=== PATIENT | male | born 1935 | race Caucasian/White ===

== ENCOUNTER 2017-09-09 10:42 | Emergency (ER) | payer MEDICARE ==
[~2017-09-09] VITALS: Ht 170.2 cm; Wt 70.3 kg
[2017-09-09 10:54] VITALS: BP 149/56
--- NOTE | 2017-09-09 11:12 | Emergency Room Report ---
History of Present Illness General Chief Complaint: Abdominal Pain Source: Patient, EMS Present Illness HPI 81-year-old male, history of atrial fibrillation with a pacemaker, not on any blood thinners, chronic alcohol abuse p/w epigastric abdominal pain for one day. Patient states pain started after vomiting, non radiating, burning in nature, intermittent. No relieving or exacerbating factors. Pt reports n/v, >5 episodes of nbnb vomiting, denies diarrhea Denies fever, chills. No hx of abdominal surgeries. No hx of endoscopies/colonoscopies. Denies any bloody vomiting. No black stool Allergies: Coded Allergies: No Known Allergies (Unverified , 09/09/17) Patient History Past Medical History: see triage record Past Surgical History: none Pertinent Family History: none Reviewed Nursing Documentation: PMH: Agreed, PSxH: Agreed Nursing Documentation-PMH Hx Hypertension: Yes Hx Cerebrovascular Accident: Yes Review of Systems All Other Systems: negative except mentioned in HPI Physical Exam Vital Signs Date Time Temp Pulse Resp B/P (MAP) Pulse Ox O2 Delivery O2 Flow Rate FiO2 09/09/17 10:38 68 18 150/58 98 Room Air 09/09/17 10:54 97.3 Sp02 EP Interpretation: reviewed, normal General Appearance: alert, GCS 15, non-toxic, moderate distress Head: normocephalic, atraumatic Eyes: bilateral eye normal inspection, bilateral eye PERRL, bilateral eye EOMI ENT: normal ENT inspection, normal pharynx, normal voice, moist mucus membranes Neck: normal inspection, full range of motion, supple Respiratory: normal inspection, lungs clear, normal breath sounds, no respiratory distress, no retraction, no wheezing, speaking full sentences, chest symmetrical Cardiovascular #1: normal inspection, regular rate, rhythm, normal capillary refill Cardiovascular #2: 2+ radial (R), 2+ radial (L) Gastrointestinal: normal inspection, non tender, soft, non-distended, no guarding Genitourinary: no CVA tenderness Musculoskeletal: normal inspection, back normal, normal range of motion, non- tender Neurologic: normal inspection, alert, oriented x3, responsive, motor strength/ tone normal, sensory intact, normal gait, speech normal Psychiatric: normal inspection, judgement/insight normal, memory normal Skin: normal inspection, normal color, no rash, warm/dry, well hydrated, normal turgor Medical Decision Making Diagnostic Impression: Primary Impression: Epigastric pain Additional Impression: Alcohol use ER Course 81-year-old male with epigastric abdominal pain Differential Diagnosis: Alcohol Gastritis, gastroenteritis, cholecystitis, appendicitis, diverticulitis , SBO, mesenteric ischemia, cardiac, UTI/pyelo At this time abdomen is soft nontender, not likely to have acute intra- abdominal surgical pathology, will hold CT for now. Plan: Basic labs, ua, ekg Pepcid, maalox, pain control, IVF ER course: Patient has remained stable during ED stay. Pain improved. Repeat abdominal exam is nontender. Tolerating PO I spoke to patient and patient's roommate possibility of admitting patient, patient states that he feels better and would like to go home. He will be with a roommate at his home. I will discharge him on Pepcid and Zofran, instructed to refrain from alcohol use. I told patient that he must come back to the emergency room in immediately if he is is having severe worsening pain, chest pain shortness of breath, vomiting blood, or having black or bloody stools. Disposition: Patient is to be discharged to home. Prescriptions given are pepcid zofran Patient is instructed to follow up with their primary care doctor within 5 days. Patient is instructed to refrain from all alcohol use Strict return precautions discussed with patient such as fever, chills, worsening/severe abdominal pain, nausea, vomiting, black or bloody stools, which may indicate severe illness. Patient verbalizes understanding and agrees with plan. Please note that this Emergency Department Report was dictated using [email or web address] technology software, occasionally this can lead to erroneous entry secondary to interpretation by the dictation equipment EKG Diagnostic Results EP Interpretation: Yes Rate: normal Rhythm: Atrial paced ST Segments: No acute changes ASA given to patient: No Rhythm Strip EP Interpretation: Yes Rate: 60 Rhythm: Atrial paced Chest X-ray CXR: Ordered: Yes 1 view Indication: Chest pain EP interpretation: Yes Interpretation: No consolidation, no effusion, no PTX, no acute cardiopulmonary disease, pacemaker noted left chest Impression: No acute disease Electronically signed by Susi Fountain MD Laboratory Tests Test 09/09/17 10:50 09/09/17 11:00 09/09/17 12:00 Sodium Level 142 MMOL/L (136-145) Potassium Level 3.8 MMOL/L (3.5-5.1) Chloride Level 101 MMOL/L (98-107) Carbon Dioxide Level 20 MMOL/L (21-32) L Anion Gap 21 mmol/L (5-15) H Blood Urea Nitrogen 25 mg/dL (7-18) H Creatinine 1.2 MG/DL (0.55-1.30) Estimate Glomerular Filtration Rate mL/min (>60) Glucose Level 73 MG/DL (74-106) L Calcium Level 9.8 MG/DL (8.5-10.1) Total Bilirubin 1.0 MG/DL (0.2-1.0) Aspartate Amino Transferase (AST) 30 U/L (15-37) Alanine Aminotransferase (ALT) 18 U/L (12-78) Alkaline Phosphatase 66 U/L (46-116) Troponin I 0.000 ng/mL (0.000-0.056) Total Protein 7.9 G/DL (6.4-8.2) Albumin 3.7 G/DL (3.4-5.0) Globulin 4.2 g/dL Albumin/Globulin Ratio 0.9 (1.0-2.7) L Lipase 151 U/L (73-393) Serum Alcohol 72 mg/dL White Blood Count 14.2 K/UL (4.8-10.8) H Red Blood Count 4.73 M/UL (4.70-6.10) Hemoglobin 16.3 G/DL (14.2-18.0) Hematocrit 48.9 % (42.0-52.0) Mean Corpuscular Volume 103 FL (80-99) H Mean Corpuscular Hemoglobin 34.4 PG (27.0-31.0) H Mean Corpuscular Hemoglobin Concent 33.3 G/DL (32.0-36.0) Red Cell Distribution Width 12.7 % (11.6-14.8) Platelet Count 276 K/UL (150-450) Mean Platelet Volume 7.1 FL (6.5-10.1) Neutrophils (%) (Auto) 77.2 % (45.0-75.0) H Lymphocytes (%) (Auto) 16.1 % (20.0-45.0) L Monocytes (%) (Auto) 6.0 % (1.0-10.0) Eosinophils (%) (Auto) 0.5 % (0.0-3.0) Basophils (%) (Auto) 0.3 % (0.0-2.0) Urine Color Yellow Urine Appearance Slightly cloudy Urine pH 5 (4.5-8.0) Urine Specific [place] 1.020 (1.005-1.035) Urine Protein 2+ (NEGATIVE) H Urine Glucose (UA) Negative (NEGATIVE) Urine Ketones 2+ (NEGATIVE) H Urine Occult Blood Negative (NEGATIVE) Urine Nitrite Negative (NEGATIVE) Urine Bilirubin Negative (NEGATIVE) Urine Urobilinogen 4 MG/DL (0.0-1.0) H Urine Leukocyte Esterase 1+ (NEGATIVE) H Urine RBC 0-2 /HPF (0 - 0) H Urine WBC 2-4 /HPF (0 - 0) Urine Squamous Epithelial Cells Few /LPF (NONE/OCC) Urine Bacteria Few /HPF (NONE) Urine Mucus Few /LPF (NONE/OCC) H Urine Opiates Screen Negative (NEGATIVE) Urine Barbiturates Screen Negative (NEGATIVE) Phencyclidine (PCP) Screen Negative (NEGATIVE) Urine Amphetamines Screen Negative (NEGATIVE) Urine Benzodiazepines Screen Negative (NEGATIVE) Urine Cocaine Screen Negative (NEGATIVE) Urine Marijuana (THC) Screen Negative (NEGATIVE) Last Vital Signs Date Time Temp Pulse Resp B/P (MAP) Pulse Ox O2 Delivery O2 Flow Rate FiO2 09/09/17 10:54 97.3 60 22 149/56 98 Room Air Disposition: HOME, SELF-CARE Condition: Improved Scripts Ondansetron Odt* (ZOFRAN ODT*) 4 Mg Tab.rapdis 4 MG ORAL Q6H Y for Nausea & Vomiting, #15 TAB 0 Refills Prov: Susi Fountain M.D. 09/09/17 Famotidine (PEPCID) 40 Mg Tablet 40 MG PO DAILY, #7 TAB 0 Refills Prov: Susi Fountain M.D. 09/09/17 Patient Instructions: Abdominal Pain, Adult Susi Fountain M.D. Sep 09, 2017 11:12
[2017-09-09 11:26] LABS: BASOPHILS % (AUTO) 0.3 % (0.0-2.0); EOSINOPHILS % (AUTO) 0.5 % (0.0-3.0); HEMATOCRIT 48.9 % (42.0-52.0); HEMOGLOBIN 16.3 G/DL (14.2-18.0); LYMPHOCYTES % (AUTO) 16.1 % (20.0-45.0); MEAN CORPUSCULAR VOLUME 103 FL (80-99); NEUTROPHILS % (AUTO) 77.2 % (45.0-75.0); PLATELET COUNT 276 K/UL (150-450); RED BLOOD COUNT 4.73 M/UL (4.70-6.10); RED CELL DISTRIBUTION WIDTH 12.7 % (11.6-14.8); WHITE BLOOD COUNT 14.2 K/UL (4.8-10.8)
[2017-09-09 11:35] LABS: ANION GAP 21 mmol/L (5-15); BLOOD UREA NITROGEN 25 mg/dL (7-18); CALCIUM 9.8 MG/DL (8.5-10.1); CARBON DIOXIDE 20 MMOL/L (21-32); CHLORIDE 101 MMOL/L (98-107); CREATININE 1.2 MG/DL (0.55-1.30); POTASSIUM 3.8 MMOL/L (3.5-5.1); SODIUM 142 MMOL/L (136-145)
[2017-09-09 11:40] LABS: ALANINE AMINOTRANSFERASE 18 U/L (12-78); ALBUMIN 3.7 G/DL (3.4-5.0); ALBUMIN/GLOBULIN RATIO 0.9 (1.0-2.7); ALKALINE PHOSPHATASE 66 U/L (46-116); ASPARTATE AMINO TRANSFERASE 30 U/L (15-37)
[2017-09-09] MEDS ORDERED: D5 1/2NS 1,000 ML IV ONE (11:45)
--- NOTE | 2017-09-09 12:00 | Diagnostic Imaging Report ---
Indication: Dyspnea Comparison: None A single view chest radiograph was obtained. Findings: There is evidence of a left pleural effusion with hazy left-sided opacity. The heart is borderline enlarged. Pacemaker is noted. IMPRESSION: Left pleural effusion
[2017-09-09 12:08] LABS: APPEARANCE,URINE SLIGHTLY CLOUDY; BILIRUBIN, URINE NEGATIVE (NEGATIVE); GLUCOSE, URINE (UA) NEGATIVE (NEGATIVE); KETONES,URINE 2+ (NEGATIVE); LEUKOCYTE ESTERASE ,URINE 1+ (NEGATIVE); NITRITE,URINE NEGATIVE (NEGATIVE); PH,URINE 5 (4.5-8.0); PROTEIN,URINE 2+ (NEGATIVE); UROBILINOGEN,URINE 4 MG/DL (0.0-1.0)
[2017-09-09 12:12] LABS: COLOR,URINE YELLOW
[2017-09-09] MEDS ORDERED: Mylanta II UD 30ml ORAL ONE (13:00)
[2017-09-09] MEDS ORDERED: Lidocaine 2% Visc 15ml soln ORAL ONE (13:00)
[2017-09-09] MEDS ORDERED: Dicyclomine HCl 10mg/5ml oral soln ORAL ONE (13:00)
[2017-09-09] MEDS ORDERED: ZOFRAN ODT4 MG ORAL (13:41)
[2017-09-09] MEDS ORDERED: PEPCID40 MG PO (13:41)
[2017-09-09 14:06] VITALS: BP 167/54
--- NOTE | 2017-09-10 15:53 | Cardiology Report ---
APPROVED REPORT EKG Measurement Heart [id number] 254P [id number] Atrial Pacemaker Incomplete right bundle branch block Nonspecific ST abnormality Prolonged QT Abnormal ECG
== END 2017-09-09 14:10 | disposition home or self-care (01) ==
LOC: EDBD 10:42 → EMR 11:18
DX: R10.13 Epigastric pain (principal); F10.10 Alcohol abuse, uncomplicated; I10 Essential (primary) hypertension; Z86.73 Personal history of transient ischemic attack (TIA), and cerebral infarction without residual deficits; I48.91 Unspecified atrial fibrillation; Z95.0 Presence of cardiac pacemaker
CPT/HCPCS: 36415; 71045; 80053; 80307; 81003; 83690; 84484; 85025; 93005; 96361; 96374; 96375; 99284; G0480; J2405; S0028; 80329

== ENCOUNTER 2018-01-04 03:19 | Inpatient (IN) | payer MEDICARE, BC ==
[2018-01-04] VITALS (8 sets, daily range): BP systolic 100–150; BP diastolic 50–61
[~2018-01-04] VITALS: Ht 165.1 cm; Wt 65.8 kg
[~2018-01-04 03:19] MED LIST: PEPCID40 MG PO; ZOFRAN ODT4 MG ORAL
[2018-01-04] MEDS ORDERED: Lidocaine 2% Visc 15ml soln ORAL ONE (03:30)
[2018-01-04] MEDS ORDERED: Isovue-370 150ml vial INJ PRN (04:15)
[2018-01-04 04:30] LABS: BASOPHILS % (AUTO) 0.5 % (0.0-2.0); EOSINOPHILS % (AUTO) 0.9 % (0.0-3.0); HEMATOCRIT 47.8 % (42.0-52.0); HEMOGLOBIN 15.9 G/DL (14.2-18.0); LYMPHOCYTES % (AUTO) 14.3 % (20.0-45.0); MEAN CORPUSCULAR VOLUME 100 FL (80-99); MONOCYTES % (AUTO) 10.3 % (1.0-10.0); PLATELET COUNT 167 K/UL (150-450); RED BLOOD COUNT 4.79 M/UL (4.70-6.10); WHITE BLOOD COUNT 7.2 K/UL (4.8-10.8)
[2018-01-04 04:41] LABS: ANION GAP 11 mmol/L (5-15); BLOOD UREA NITROGEN 20 mg/dL (7-18); CALCIUM 9.3 MG/DL (8.5-10.1); CARBON DIOXIDE 26 MMOL/L (21-32); CHLORIDE 99 MMOL/L (98-107); CREATININE 1.4 MG/DL (0.55-1.30); POTASSIUM 3.3 MMOL/L (3.5-5.1); SODIUM 136 MMOL/L (136-145)
[2018-01-04 04:54] LABS: ALANINE AMINOTRANSFERASE 11 U/L (12-78); ALBUMIN 3.2 G/DL (3.4-5.0); ALBUMIN/GLOBULIN RATIO 0.8 (1.0-2.7); ALKALINE PHOSPHATASE 69 U/L (46-116); ASPARTATE AMINO TRANSFERASE 38 U/L (15-37); CKMB 1.2 NG/ML (0.0-3.6); CREATINE KINASE 38 U/L (26-308)
--- NOTE | 2018-01-04 05:02 | Emergency Room Report ---
History of Present Illness General Chief Complaint: General Complaint Source: Patient Present Illness HPI Is an 82-year-old male with a history of hypertension and has a pacemaker. He also has a history of prostate cancer status post surgery. He presents with chief complaint of choking and coughing. He said this started after he took Colace pill. He said he thought it was stuck to his throat and he was coughing it up. He said he coughed up some liquid that was burning in nature. Now he continue coughing. Nothing made it better. Laying flat made it worse. When his roommate came in, he said that he's been coughing for last for 5 days. Denies any chest pain. No nausea no vomiting. No diaphoresis. Patient was here in August for epigastric pain. Chest x-ray done showed small left pleural effusion. Allergies: Coded Allergies: CLARITHROMYCIN (Verified Allergy, Unknown, 01/04/18) Patient History Past Medical History: see triage record, old chart reviewed, HTN, CAD Past Surgical History: pacemaker Pertinent Family History: none Social History: Denies: smoking Immunizations: other Reviewed Nursing Documentation: PMH: Agreed; PSxH: Agreed Nursing Documentation-PMH Hx Hypertension: Yes Hx Pacemaker: Yes Hx Cancer: Yes - PROSTATE SURGERY,PROSTATE CA Hx Cerebrovascular Accident: Yes Review of Systems Eye: Denies: eye pain, blurred vision ENT: Denies: ear pain, nose congestion, throat swelling Respiratory: Reports: cough; Denies: shortness of breath Cardiovascular: Denies: chest pain, palpitations Gastrointestinal: Denies: abdominal pain, diarrhea, nausea, vomiting Musculoskeletal: Denies: back pain, joint pain Skin: Denies: rash Neurological: Denies: headache, numbness Endocrine: Denies: increased thirst, increased urine Hematologic/Lymphatic: Denies: easy bruising All Other Systems: negative except mentioned in HPI Physical Exam Vital Signs Date Time Temp Pulse Resp B/P (MAP) Pulse Ox O2 Delivery O2 Flow Rate FiO2 01/04/18 03:14 98.3 60 18 142/60 100 Room Air 98.2 vitals normal Sp02 EP Interpretation: reviewed, normal General Appearance: well appearing, no apparent distress, alert Head: normocephalic, atraumatic Eyes: bilateral eye PERRL, bilateral eye EOMI ENT: hearing grossly normal, normal pharynx Neck: full range of motion, supple, no meningismus Respiratory: chest non-tender, decreased breath sounds - left side Cardiovascular #1: regular rate, rhythm, no murmur Gastrointestinal: normal bowel sounds, non tender, no mass, no organomegaly, no bruit, non-distended Musculoskeletal: back normal, gait/station normal, normal range of motion Psychiatric: mood/affect normal Skin: warm/dry Medical Decision Making Diagnostic Impression: Primary Impression: Pleural effusion on left ER Course Patient presents with a large left pleural effusion. This is a big change from August. No evidence of ACS, PE, dissection. Lasix given. No evidence of any respiratory or distress. His coughing is probably secondary to pleural effusion rather than a foreign body. CT scan pending. CT may she show neoplastic process. I discussed the case with Dr. Gomes who will admit. Lab Results Impression labs with elevated BNP EKG Diagnostic Results Rate: normal Rhythm: other - paced ST Segments: other Rhythm Strip Diag. Results Rhythm Strip Time: 05:01 EP Interpretation: yes Rate: 60 Rhythm: NSR, no PVC's, no ectopy Chest X-Ray Diagnostic Results Chest X-Ray Diagnostic Results : Chest X-Ray Ordered: Yes # of Views/Limited/Complete: 1 View Indication: Shortness of Breath EP Interpretation: Yes Interpretation: no pneumothorax, other - pacemaker. Large left pleural effusion. Cannot rule out underlying infiltrate or mass Impression: Other - large left pleural effusion Electronically Signed by: Ok Larsen MD CT/MRI/US Diagnostic Results CT/MRI/US Diagnostic Results : Imaging Test Ordered: CT chest Impression CT chest will be read by radiologist. Readings pending. Last Vital Signs Date Time Temp Pulse Resp B/P (MAP) Pulse Ox O2 Delivery O2 Flow Rate FiO2 01/04/18 04:05 60 18 114/58 100 Room Air 01/04/18 03:20 98.2 98.2 Status: improved Disposition: ADMITTED INPATIENT Condition: Serious Referrals: NOT CHOSEN SYDNEY/,REFERRING (PCP) OK LARSEN M.D. January 04, 2018 05:02
[2018-01-04] MEDS ORDERED: MULTIVITAMINS1 EAC2 ORAL (05:44)
[2018-01-04] MEDS ORDERED: TYLENOL EXTRA500 MG ORAL (05:44)
[2018-01-04] MEDS ORDERED: CRESTOR10 M1 ORAL (05:44)
[2018-01-04] MEDS ORDERED: FUROSEMIDE20 M1 ORAL (05:44)
[2018-01-04] MEDS ORDERED: VITAMIN B-12100 MCG ORAL (05:44)
[2018-01-04] MEDS ORDERED: VITAMIN D1000 UNI1 ORAL (05:44)
[2018-01-04] MEDS ORDERED: AMBIEN5 MG ORAL (05:44)
[2018-01-04] MEDS ORDERED: PRILOSEC OTC20 MG ORAL (05:44)
[2018-01-04] MEDS ORDERED: AMIODARONE HCL200 MG ORAL (05:44)
[2018-01-04] MEDS ORDERED: METOPROLOL TAR100 M1 ORAL (05:44)
[2018-01-04] MEDS ORDERED: NITROSTAT0.4 M2 SL (05:44)
--- NOTE | 2018-01-04 06:45 | Diagnostic Imaging Report ---
EXAM: CT Chest With Intravenous Contrast CLINICAL HISTORY: SOB TECHNIQUE: Axial computed tomography images of the chest with intravenous contrast during the arterial phase of enhancement. CTDI is 25 mGy and DLP is 900 mGy-cm. One or more of the following dose reduction techniques were used: automated exposure control, adjustment of the mA and/or kV according to patient size, use of iterative reconstruction technique. Coronal and sagittal reformatted images were created and reviewed. COMPARISON: Correlated with the earlier chest radiograph. FINDINGS: Normal caliber thoracic aorta with atherosclerotic disease. Coronary artery calcifications. Pacemaker device. No pericardial effusion. Large left pleural effusion with mild mediastinal shift towards the right. There is central atelectasis of portion of the left lower lobe. No evidence of failure or edema. No definite PE. Peripheral branches in the left lung are suboptimally evaluated. No acute fractures. Small hiatal hernia. No adenopathy. Old granulomatous disease. IMPRESSION: Large left pleural effusion with mild mediastinal shift towards the right. There is central compressive atelectasis of portion of the left lower lobe. Underlying occult postobstructive process cannot be excluded based on this exam. Recommend short-term followup. No definite evidence of PE.
[2018-01-04 07:12] LABS: APPEARANCE,URINE CLEAR; BILIRUBIN, URINE NEGATIVE (NEGATIVE); COLOR,URINE PALE YELLOW; GLUCOSE, URINE (UA) NEGATIVE (NEGATIVE); KETONES,URINE NEGATIVE (NEGATIVE); LEUKOCYTE ESTERASE ,URINE NEGATIVE (NEGATIVE); NITRITE,URINE NEGATIVE (NEGATIVE); PH,URINE 5 (4.5-8.0); PROTEIN,URINE 1+ (NEGATIVE); UROBILINOGEN,URINE 1 MG/DL (0.0-1.0)
[2018-01-04] MEDS ORDERED: Zolpidem 5mg tab ORAL PRN (07:45)
[2018-01-04] MEDS ORDERED: Milk of Magnesia 30ml Ud ORAL PRN (08:45)
[2018-01-04] MEDS: Docusate 250mg cap ORAL SCH (10:35)
[2018-01-04] MEDS: Vitamin D 1000 IU Tab ORAL SCH (10:36)
[2018-01-04] MEDS: Amiodarone 200mg tab ORAL SCH (10:36)
[2018-01-04] MEDS: Heparin 5000 units/ml inj SUBQ SCH ×2 (10:37→21:00)
[2018-01-04] MEDS: Vitamin B-12 100mcg tab ORAL SCH (10:41)
[2018-01-04] MEDS: Acetaminophen 500mg (ES) tab ORAL PRN ×3 (10:42→21:12)
--- NOTE | 2018-01-04 20:45 | History and Physical Report ---
DATE OF ADMISSION: 01/04/2018 CHIEF COMPLAINT: Shortness of breath. HISTORY OF PRESENT ILLNESS: The patient is a pleasant 82-year-old male. He has history of hypertension, congestive heart failure, pacemaker. He presented from home with complaints of choking on a pill. According to the patient, he tried to swallow a laxative yesterday and it got stuck in his throat, slowly dissolved, and he felt an acid taste in his mouth. He presented to the emergency room. By then, he had stated that the pill had gone down. He has had worsening shortness of breath and dyspnea on exertion for the last two months. On evaluation in the emergency room, a CAT scan of the chest showed extensive -sided pleural effusion. In light of the patient's symptomatic pleural effusion, he is now admitted for further evaluation and care. He denies any fevers or chills. He has had no cough. PAST MEDICAL HISTORY: As above. History of prostate cancer. PAST SURGICAL HISTORY: Includes appendectomy, pacemaker, and prostatectomy. CURRENT MEDICATIONS: Reconciled and reviewed. ALLERGIES: Include Biaxin. FAMILY HISTORY: Significant for heart disease. SOCIAL HISTORY: Negative for tobacco. The patient drinks two glasses of wine and does have history of alcohol abuse. REVIEW OF SYSTEMS: GENERAL: No fever or chills. HEENT: No headaches or visual changes. CARDIOPULMONARY: No chest pain. Positive for shortness of breath. GASTROINTESTINAL: No nausea or vomiting. GENITOURINARY: No urgency or frequency. MUSCULOSKELETAL: No joint pain or swelling. NEUROLOGIC: No evidence of seizures. PHYSICAL EXAMINATION: VITAL SIGNS: Temperature 98, pulse 60, respirations 30, and blood pressure 142/59. GENERAL: The patient is well developed, in no apparent distress. HEART: Regular rate and rhythm. LUNGS: Significantly diminished breath sounds on the right. ABDOMEN: Soft, nontender, and nondistended. EXTREMITIES: Without clubbing, cyanosis, or edema. LABORATORY AND DIAGNOSTIC DATA: Chest CT scan shows large left-sided pleural effusion. White count was 7, potassium 3.3, and creatinine was 1.4. ASSESSMENT: This is a pleasant male, admitted with shortness of breath secondary to a large pleural effusion. PROBLEM LIST: 1. Large pleural effusion. 2. Shortness of breath. 3. Pacemaker. 4. Hypertension. 5. History of CHF. PLAN: Supplemental oxygen. Thoracentesis. Check PSA. Check cytology on pleural fluid. Continue outpatient cardiac regimen. Check swallow evaluation. Dank Gomes M.D. DR: GINNY JOB#: [id number] CC:
[2018-01-04] MEDS: Atorvastatin 20mg tab ORAL SCH (21:11)
[2018-01-05] VITALS: BP 146/74
--- NOTE | 2018-01-05 01:30 | Consultation ---
DATE OF CONSULTATION: 01/04/2018 CARDIOLOGY CONSULTATION CONSULTING PHYSICIAN: Marc Martinez M.D. REQUESTING PHYSICIAN: Dank Gomes M.D. REASON FOR CONSULTATION: Symptomatic pleural effusion in the setting of congestive heart failure and permanent pacemaker. HISTORY OF PRESENT ILLNESS: This is an 82-year-old white male, who has a known history of hypertensive heart disease with congestive heart failure and a permanent pacemaker. He usually gets his care at [facility] by Dr. Aparicio. He has a known history of congestive heart failure and states that he has had a pleural effusion in the past that required drainage from the back approximately five years ago. The patient also has a permanent pacemaker that was implanted in 2005, but has not been checked on a regular basis and it is functioning well according to his latest evaluation. The patient came to the emergency room after choking on a pill that apparently was a medication for constipation that dissolved in his throat and caused him to cough, choke, and have an acid taste. This precipitated significant shortness of breath, which already has been progressing over the past two months. In the emergency room, evaluation was notable for a CAT scan of the chest revealing large left pleural effusion with mediastinal shift and compressive atelectasis. PAST MEDICAL HISTORY: 1. Congestive heart failure. 2. Hypertension. 3. Permanent pacemaker. 4. History of prostate cancer. 5. Constipation. 6. Prior appendectomy. 7. Prior prostatectomy. 8. History of cerebrovascular accident. ALLERGIES: Include clarithromycin. SOCIAL HISTORY: Negative for smoking, alcohol, or substance abuse. REVIEW OF SYSTEMS: No fevers or chills. No history of blood clots in the legs or asthma. No history of seizure. He has had a prior stroke with some minimal limitations. There is no history of diabetes or thyroid impairment. He has not had any change in bowel habits. He is not aware of any active prostate cancer. PHYSICAL EXAMINATION: VITAL SIGNS: Blood pressure 142/60, pulse 60, and respiratory rate 18. HEENT: Conjunctivae are pink. Sclerae are anicteric. Oropharynx clear. Mucous membranes moist. NECK: Supple. Jugular venous pressure normal. LUNGS: With diminished breath sounds on the left. Few rales. CARDIAC: Regular rhythm and rate. Normal S1, S2 with a 1/6 systolic apical murmur. Pacemaker pocket site clean and dry. ABDOMEN: Soft and nontender. EXTREMITIES: With no edema. LABORATORY AND DIAGNOSTIC DATA: EKG reveals a paced cardiac rhythm with no acute abnormality. Labs reviewed. IMPRESSION: 1. Symptomatic large pleural effusion with mediastinal shift. 2. Hypertensive cardiomyopathy. 3. History of congestive heart failure, now with acute on chronic exacerbation. 4. Permanent pacemaker with appropriate function. 5. Aspiration. PLAN: 1. Cardiac monitoring. 2. Nasal oxygen. 3. Diagnostic and therapeutic thoracentesis. 4. Titrate anti-failure regimen based on clinical parameters. 5. We will contact primary machine sorter to expand database. 6. DVT prophylaxis. Marc Martinez M.D. DR: DARLENE JOB#: [id number] CC:
[2018-01-05 04:00] VITALS: BP 145/75
[2018-01-05 08:00] VITALS: BP 125/64
[2018-01-05] MEDS: Docusate 250mg cap ORAL SCH (09:00)
[2018-01-05] MEDS: Heparin 5000 units/ml inj SUBQ SCH ×2 (09:00→21:00)
--- NOTE | 2018-01-05 09:02 | General Progress Note ---
Assessment/Plan Problem List: (1) Pleural effusion ICD Codes: J90 - Pleural effusion, not elsewhere classified SNOMED: 46977827 (2) CHF (congestive heart failure), NYHA class III ICD Codes: I50.9 - Heart failure, unspecified SNOMED: 184332443, 979882413 (3) Pacemaker ICD Codes: Z95.0 - Presence of cardiac pacemaker SNOMED: 875937248 (4) Prostate cancer ICD Codes: C61 - Malignant neoplasm of prostate SNOMED: 809563692 Status: stable, progressing, not improved Assessment/Plan for thoracentsis xray shoulder cardiac rx check cytology Subjective ROS Limited/Unobtainable: No Constitutional: Reports: no symptoms HEENT: Reports: no symptoms Cardiovascular: Reports: no symptoms Respiratory: Reports: shortness of breath Gastrointestinal/Abdominal: Reports: no symptoms Genitourinary: Reports: no symptoms Neurologic/Psychiatric: Reports: no symptoms Endocrine: Reports: no symptoms Hematologic/Lymphatic: Reports: no symptoms Allergies: Coded Allergies: CLARITHROMYCIN (Verified Allergy, Unknown, 01/04/18) All Systems: reviewed and negative except above Subjective right shoulder pain. +HALL. no cp Objective Last 24 Hour Vital Signs Date Time Temp Pulse Resp B/P (MAP) Pulse Ox O2 Delivery O2 Flow Rate FiO2 01/05/18 04:00 97.0 60 20 145/75 94 Room Air 97.0 01/05/18 04:00 60 01/05/18 00:00 98.0 60 20 146/74 96 Room Air 98.0 01/05/18 00:00 60 01/04/18 21:13 63 139/61 01/04/18 20:00 98.0 60 20 139/61 94 Room Air 98.0 01/04/18 20:00 60 01/04/18 16:00 96.6 60 18 137/60 98 Room Air 96.6 01/04/18 16:00 60 01/04/18 12:00 60 01/04/18 12:00 97.0 60 18 100/57 96 Room Air 97.0 01/04/18 10:35 60 143/64 Intake and Output 01/04/18 01/05/18 19:00 07:00 Intake Total 720 ml 480 ml Output Total 750 ml 400 ml Balance -30 ml 80 ml Intake Oral 720 ml 480 ml Output Urine Total 750 ml 400 ml # Bowel Movements 3 Height (Feet): 5 Height (Inches): 5.00 Weight (Pounds): 145 General Appearance: WD/WN, alert Neck: supple Cardiovascular: regular rhythm Respiratory/Chest: decreased breath sounds Abdomen: normal bowel sounds, non tender, soft, no organomegaly Neurologic: marketing project specialist II-XII grossly normal, no motor/sensory deficits, abnormal gait , alert, oriented x 3, responsive ESTELA ESPARZA January 05, 2018 09:02
[2018-01-05] MEDS: Vitamin B-12 100mcg tab ORAL SCH (09:17)
[2018-01-05] MEDS: Vitamin D 1000 IU Tab ORAL SCH (09:17)
[2018-01-05] MEDS: Amiodarone 200mg tab ORAL SCH (09:17)
[2018-01-05] MEDS ORDERED: Lidocaine 1% MPF 10mg/ml 5ml INJ SCH (10:10)
--- NOTE | 2018-01-05 10:41 | Consultation ---
Consult Note Consult Note 82-year-old white male, who has a known history of hypertensive heart disease with congestive heart failure and a permanent pacemaker. Patient has a known history of congestive heart failure and states that he has had a pleural effusion requiring thoracentesis. The patient also has a permanent pacemaker that was implanted in 2005. Patient admitted for shortness of breath and has a large left effusion. Patient ordered tap but not yet done. The patient came to the emergency room after choking on a pill and as a result developed worsening shortness of breath, which has been progressive. care reviewed and discussed. PAST MEDICAL HISTORY: 1. Congestive heart failure. 2. prior pleural effusion 3. Permanent pacemaker. 4. History of prostate cancer. 5. Constipation. 6. Prior appendectomy. 7. Prior prostatectomy. 8. History of cerebrovascular accident. 9. Hypertension ALLERGIES/MEDS: reviewed and reconciled SOCIAL HISTORY: Negative for smoking, alcohol, or substance abuse. no falls or trauma REVIEW OF SYSTEMS: all 10 points reviewed and otherwise negative PHYSICAL EXAMINATION: WDWN male NAD VITAL SIGNS: Blood pressure 125/64, pulse 60, and respiratory rate 18. 98.4 98% HEENT: PEERL, EOMI. Oropharynx clear. Mucous membranes moist. NECK: Supple. Jugular venous pressure normal. Carotids 2+ LUNGS: With significantly reduced breath sounds on the left. Few rales. CARDIAC: Regular rhythm and rate. Normal S1, S2 with a 1/6 systolic apical murmur. Pacemaker in place ABDOMEN: Soft and nontender.no ascites, NO HSM EXTREMITIES: With no edema. no CC nonfocal LABORATORY AND DIAGNOSTIC DATA: EKG paced ct chest with large left effusion Labs Test 01/04/18 04:20 01/04/18 06:28 01/04/18 07:46 White Blood Count 7.2 K/UL (4.8-10.8) Red Blood Count 4.79 M/UL (4.70-6.10) Hemoglobin 15.9 G/DL (14.2-18.0) Hematocrit 47.8 % (42.0-52.0) Mean Corpuscular Volume 100 FL (80-99) Mean Corpuscular Hemoglobin 33.3 PG (27.0-31.0) Mean Corpuscular Hemoglobin Concent 33.3 G/DL (32.0-36.0) Red Cell Distribution Width 12.0 % (11.6-14.8) Platelet Count 167 K/UL (150-450) Mean Platelet Volume 8.5 FL (6.5-10.1) Neutrophils (%) (Auto) 74.0 % (45.0-75.0) Lymphocytes (%) (Auto) 14.3 % (20.0-45.0) Monocytes (%) (Auto) 10.3 % (1.0-10.0) Eosinophils (%) (Auto) 0.9 % (0.0-3.0) Basophils (%) (Auto) 0.5 % (0.0-2.0) Prothrombin Time 10.5 SEC (9.30-11.50) Prothromb Time International Ratio 1.0 (0.9-1.1) Activated Partial Thromboplast Time 26 SEC (23-33) Sodium Level 136 MMOL/L (136-145) Potassium Level 3.3 MMOL/L (3.5-5.1) Chloride Level 99 MMOL/L (98-107) Carbon Dioxide Level 26 MMOL/L (21-32) Anion Gap 11 mmol/L (5-15) Blood Urea Nitrogen 20 mg/dL (7-18) Creatinine 1.4 MG/DL (0.55-1.30) Estimat Glomerular Filtration Rate mL/min (>60) Glucose Level 106 MG/DL (74-106) Calcium Level 9.3 MG/DL (8.5-10.1) Total Bilirubin 1.0 MG/DL (0.2-1.0) Aspartate Amino Transf (AST/SGOT) 38 U/L (15-37) Alanine Aminotransferase (ALT/SGPT) 11 U/L (12-78) Alkaline Phosphatase 69 U/L (46-116) Total Creatine Kinase 38 U/L (26-308) Creatine Kinase MB 1.2 NG/ML (0.0-3.6) Creatine Kinase MB Relative Index 3.1 Troponin I 0.003 ng/mL (0.000-0.056) Pro-B-Type Natriuretic Peptide 2043 pg/mL (0-125) Total Protein 7.2 G/DL (6.4-8.2) Albumin 3.2 G/DL (3.4-5.0) Globulin 4.0 g/dL Albumin/Globulin Ratio 0.8 (1.0-2.7) Urine Color Pale yellow Urine Appearance Clear Urine pH 5 (4.5-8.0) Urine Specific [place] 1.005 (1.005-1.035) Urine Protein 1+ (NEGATIVE) Urine Glucose (UA) Negative (NEGATIVE) Urine Ketones Negative (NEGATIVE) Urine Occult Blood Negative (NEGATIVE) Urine Nitrite Negative (NEGATIVE) Urine Bilirubin Negative (NEGATIVE) Urine Urobilinogen 1 MG/DL (0.0-1.0) Urine Leukocyte Esterase Negative (NEGATIVE) Urine RBC 0 /HPF (0 - 0) Urine WBC 0-2 /HPF (0 - 0) Urine Squamous Epithelial Cells Occasional /LPF Urine Bacteria Occasional /HPF (NONE) Prostate Specific Antigen < 0.13 ng/mL (0.13-4.0) IMPRESSION: 1. large pleural effusion with mediastinal shift. with concern for malignancy 2. Hypertensive cardiomyopathy. 3. History of congestive heart failure, 4. Permanent pacemaker with appropriate function. 5. Aspiration. 6. compression atelectasis with possible post obstructive findings PLAN tap send for cytology keep negative will likely need follow up CT follow up cxr for improvement reserve need for VATS pending follow up impression, plan, and exam edited and reviewed in detail care discussed with Johnathan De La Cruz MD January 05, 2018 10:41
[2018-01-05] MEDS ORDERED: Lidocaine 1% Plain 30 ml INJ SCH (10:45)
[2018-01-05 12:00] VITALS: BP 109/56
[2018-01-05 12:00] LABS: BASOPHILS % (AUTO) 0.5 % (0.0-2.0); EOSINOPHILS % (AUTO) 1.3 % (0.0-3.0); HEMATOCRIT 45.5 % (42.0-52.0); HEMOGLOBIN 15.1 G/DL (14.2-18.0); LYMPHOCYTES % (AUTO) 16.3 % (20.0-45.0); MEAN CORPUSCULAR VOLUME 102 FL (80-99); MONOCYTES % (AUTO) 10.7 % (1.0-10.0); NEUTROPHILS % (AUTO) 71.2 % (45.0-75.0); PLATELET COUNT 184 K/UL (150-450); RED BLOOD COUNT 4.47 M/UL (4.70-6.10); RED CELL DISTRIBUTION WIDTH 12.5 % (11.6-14.8); WHITE BLOOD COUNT 6.8 K/UL (4.8-10.8)
--- NOTE | 2018-01-05 12:04 | Diagnostic Imaging Report ---
Indication: Shortness of breath Technique: XRAY Chest 1v Comparison: 09/09/2017 Findings: Patchy radiation of the lower two thirds of the left hemithorax possibly related to large pleural effusion. Atelectasis is thought less likely as there is no shift of the medial structures to the left. There is some aeration of the left apex. Mass or pneumonia in the atelectatic lung is not excluded. Right lung is essentially clear. There are atherosclerotic vessel calcifications. A pacemaker is noted. There are degenerative changes of the spine. IMPRESSION: Opacification of the left hemithorax as above concerning for large pleural effusion. Lobar atelectasis is thought less likely as there is no shift of mediastinal structures to the left. Underlying mass or pneumonia not excluded. This corresponds with the preliminary interpretation of the treating ER clinician, as documented in the electronic medical record. Study obtained via the emergency department however patient admitted to the hospital at time of dictation of the final report.
[2018-01-05 12:39] LABS: ALANINE AMINOTRANSFERASE 23 U/L (12-78); ALBUMIN 3.1 G/DL (3.4-5.0); ALBUMIN/GLOBULIN RATIO 0.7 (1.0-2.7); ALKALINE PHOSPHATASE 63 U/L (46-116); ANION GAP 9 mmol/L (5-15); ASPARTATE AMINO TRANSFERASE 30 U/L (15-37); BLOOD UREA NITROGEN 14 mg/dL (7-18); CALCIUM 9.4 MG/DL (8.5-10.1); CARBON DIOXIDE 27 MMOL/L (21-32); CHLORIDE 99 MMOL/L (98-107); CREATININE 1.1 MG/DL (0.55-1.30); POTASSIUM 3.7 MMOL/L (3.5-5.1); SODIUM 135 MMOL/L (136-145)
--- NOTE | 2018-01-05 12:52 | Physician Query ---
--------- THIS DOCUMENT IS A PERMANENT PART OF THE MEDICAL RECORD --------- PLEASE COMPLETE THE DOCUMENT BEFORE SIGNING Dear Dr. Martinez Date: 2017 Animal Behaviorist/CDS Name: Sharda Arroyo Animal Behaviorist / CDS Phone # [phone] Exercise your independent professional judgment when responding to query. Question asked do not imply a particular answer is desired/expected Clinical Documentation States: Consultation notes (01/04/2018) impression includes "History of congestive heart failure, now with acute on chronic exacerbation" Clinical Findings Show: BNP: 2043, Diuretic: Furosemide Can you please further clarify the diagnosis: [] Acute on chronic systolic heart failure [] Acute on chronic diastolic heart failure [] Acute on chronic systolic & diastolic (combines) heart failure [] Other: [] Clinically undeterminable Condition Present on Admission: [] Yes [] No []Clinically Undeterminable Please also document in your Progress Notes and/or Discharge Summary and indicate if the condition was present on admission. ESTHELAD
--- NOTE | 2018-01-05 13:10 | Pre-Procedure Note/Attestation ---
Pre-Procedure Note/Attestation Complete Prior to Procedure Planned Procedure: left Procedure Narrative: thoracentesis, US guided Indications for Procedure Pre-Operative Diagnosis: pleural effusion Attestation I attest that I discussed the nature of the procedure; its benefits; risks and complications; and alternatives (and the risks and benefits of such alternatives ), prior to the procedure, with the patient (or the patient's legal fulfillment representative). I attest that, if there was a reasonable possibility of needing a blood transfusion, the patient (or the patient's legal fulfillment representative) was given the [facility] standardized written summary, pursuant to the [place] Blood Safety Act ([place] Health and Safety Code # 1645, as amended). I attest that I re-evaluated the patient just prior to the surgery and that there has been no change in the patient's H&P, except as documented below: Andrew Rodriguez M.D. January 05, 2018 13:10
--- NOTE | 2018-01-05 13:17 | Diagnostic Imaging Report ---
Indications: Pleural effusion Technique: Ultrasound used to localize optimal puncture site. Sterile prepping and draping left chest. Local anesthesia with 1% lidocaine. Under real-time ultrasound guidance, puncture pleural space using thoracentesis needle. Stylet removed. Catheter placed to vacuum bottle suction. Total 1200 milliliters of fluid aspirated. Patient tolerated procedure well, without immediate complication. Findings: Followup sonography demonstrates residual pleural effusion IMPRESSION: Successful ultrasound-guided left thoracentesis, removing 1200 milliliters of fluid. Follow-up sonography demonstrated residual left pleural effusion. As the chronicity of the effusion was not known amount of fluid removed was limited to decrease the risk of reexpansion pulmonary edema.
--- NOTE | 2018-01-05 13:21 | Diagnostic Imaging Report ---
Indication: Shortness of breath Technique: XRAY Chest 1v Comparison: 01/04/2018 Findings: Decrease in size of large left pleural effusion status post thoracentesis. Moderate left pleural effusion persists. There is no pneumothorax. Right lung is clear. IMPRESSION: Interval decrease in left-sided pleural fluid status post thoracentesis (1200 mL of fluid removed). No pneumothorax. Moderate to large effusion persists. Consider repeat thoracentesis 01/06/2018.
[2018-01-05 16:00] VITALS: BP 117/59
[2018-01-05] MEDS: Acetaminophen 500mg (ES) tab ORAL PRN ×2 (17:12→23:13)
--- NOTE | 2018-01-05 18:39 | Cardiology Report ---
APPROVED REPORT EXAM: Two-dimensional and M-mode echocardiogram with Doppler and color Doppler. INDICATION Other Technically limited and difficult study due to poor acoustical windows. M-mode measurements not obtainable due to cardiac structure. Normal left ventricular chamber size, systolic function and wall motion. Left ventricular ejection fraction estimated to be 55-60% to extend visulaized. No evidence of left ventricular hypertrophy. No evidence of pericardial or pleural effusion. Aortic valve difficult to visualize. Thickened mitral valve leaflets with normal excursion. Mild mitral annulus and aortic root calcification. Pulmonic valve not well visualized. Normal tricuspid valve structure. IVC is normal in size and collapsible with respiration. A color flow and spectral Doppler study was performed and revealed: Trace aortic regurgitation. Trace mitral regurgitation. Normal mitral diastolic function. Trace tricuspid regurgitation. Tricuspid systolic velocities suggests peak right ventricular systolic pressure of 26mmHg
[2018-01-05 20:00] VITALS: BP 135/93
[2018-01-05] MEDS: Atorvastatin 20mg tab ORAL SCH (21:01)
[2018-01-06] VITALS: BP 124/64
--- NOTE | 2018-01-06 00:30 | Progress Note ---
DATE: 01/05/2018 CARDIOLOGY PROGRESS NOTE SUBJECTIVE: The patient still has shortness of breath lying flat especially. No chest pain. OBJECTIVE: VITAL SIGNS: Blood pressure 117/59, pulse 60, and respirations 18. Monitored rhythm paced. LUNGS: Diminished breath sounds. HEART: Regular rhythm and rate. Normal S1, S2. A 1/6 systolic murmur at apex. ABDOMEN: Soft. EXTREMITIES: Trace edema. DIAGNOSTIC DATA: Chest x-ray post thoracentesis reveals 1200 mL of fluid removed with improved aeration. White count 6.8 and hemoglobin 15. Potassium 3.7. Albumin 3.1. IMPRESSION: 1. Pleural effusion status post thoracentesis, recurrent. 2. Permanent pacemaker. 3. Hypertensive and ischemic cardiomyopathy. 4. Diastolic congestive heart failure. 5. Atelectasis. 6. History of prostate cancer, in remission. PLAN: 1. Outpatient pacemaker interrogation per regular schedule. 2. Continue current antianginal regimen. 3. Maintenance diuretic dose and maintenance dose amiodarone. 4. Further recommendations will follow based on clinical parameters. Marc Martinez M.D. DR: DEQUAN JOB#: [id number] CC:
[2018-01-06 04:00] VITALS: BP 138/66
--- NOTE | 2018-01-06 07:46 | General Progress Note ---
Assessment/Plan Problem List: (1) Pleural effusion ICD Codes: J90 - Pleural effusion, not elsewhere classified SNOMED: 39975700 (2) CHF (congestive heart failure), NYHA class III ICD Codes: I50.9 - Heart failure, unspecified SNOMED: 230828236, 506598229 (3) Pacemaker ICD Codes: Z95.0 - Presence of cardiac pacemaker SNOMED: 465524592 (4) Prostate cancer ICD Codes: C61 - Malignant neoplasm of prostate SNOMED: 520109892 Status: stable, progressing Assessment/Plan follow up cytology ct brain pt/ot eval rehab Subjective ROS Limited/Unobtainable: No Constitutional: Reports: malaise, weakness HEENT: Reports: no symptoms Cardiovascular: Reports: no symptoms Respiratory: Reports: no symptoms Gastrointestinal/Abdominal: Reports: no symptoms Genitourinary: Reports: no symptoms Neurologic/Psychiatric: Reports: other Endocrine: Reports: no symptoms Hematologic/Lymphatic: Reports: no symptoms Allergies: Coded Allergies: CLARITHROMYCIN (Verified Allergy, Unknown, 01/04/18) All Systems: reviewed and negative except above Subjective c/o back pain and dbl vision. no headaches. breathing feels "better.". still feels "weak." Objective Last 24 Hour Vital Signs Date Time Temp Pulse Resp B/P (MAP) Pulse Ox O2 Delivery O2 Flow Rate FiO2 01/06/18 04:00 60 01/06/18 04:00 97.3 60 20 138/66 95 Room Air 97.3 01/06/18 00:00 60 01/06/18 00:00 97.8 60 20 124/64 99 Room Air 97.8 01/05/18 21:01 62 135/93 01/05/18 20:00 60 01/05/18 20:00 97.9 62 20 135/93 93 Room Air 97.9 01/05/18 16:00 97.5 60 18 117/59 97 Room Air 97.5 01/05/18 16:00 60 01/05/18 12:00 60 01/05/18 12:00 97.0 60 18 109/56 98 Room Air 97.0 01/05/18 09:17 60 125/64 01/05/18 08:00 97.3 60 18 125/64 99 Room Air 97.3 01/05/18 08:00 60 Intake and Output 01/05/18 01/06/18 19:00 07:00 Intake Total 360 ml Output Total 350 ml Balance 10 ml Intake Oral 360 ml Output Urine Total 350 ml # Voids 3 # Bowel Movements 1 Laboratory Tests 01/05/18 11:45: White Blood Count 6.8, Red Blood Count 4.47L, Hemoglobin 15.1, Hematocrit 45.5, Mean Corpuscular Volume 102H, Mean Corpuscular Hemoglobin 33.8H, Mean Corpuscular Hemoglobin Concent 33.1, Red Cell Distribution Width 12.5, Platelet Count 184, Mean Platelet Volume 9.0, Neutrophils (%) (Auto) 71.2, Lymphocytes (% ) (Auto) 16.3L, Monocytes (%) (Auto) 10.7H, Eosinophils (%) (Auto) 1.3, Basophils (%) (Auto) 0.5, Prothrombin Time 10.3, Prothromb Time International Ratio 1.0, Activated Partial Thromboplast Time 28, Sodium Level 135L, Potassium Level 3.7, Chloride Level 99, Carbon Dioxide Level 27, Anion Gap 9, Blood Urea Nitrogen 14, Creatinine 1.1, Estimat Glomerular Filtration Rate , Glucose Level 94, Calcium Level 9.4, Total Bilirubin 1.0, Aspartate Amino Transf (AST/SGOT) 30 , Alanine Aminotransferase (ALT/SGPT) 23, Alkaline Phosphatase 63, Total Protein 7.4, Albumin 3.1L, Globulin 4.3, Albumin/Globulin Ratio 0.7L Height (Feet): 5 Height (Inches): 5.00 Weight (Pounds): 145 General Appearance: WD/WN, alert Neck: supple Cardiovascular: regular rhythm Respiratory/Chest: lungs clear Abdomen: normal bowel sounds, non tender, soft, no organomegaly Edema: no edema noted Arm (L), no edema noted Arm (R), no edema noted Leg (L), no edema noted Leg (R), no edema noted Pedal (L), no edema noted Pedal (R), no edema noted Generalized ESTELA ESPARZA January 06, 2018 07:46
--- NOTE | 2018-01-06 07:48 | General Progress Note ---
Assessment/Plan Problem List: (1) Pleural effusion ICD Codes: J90 - Pleural effusion, not elsewhere classified SNOMED: 30893809 (2) CHF (congestive heart failure), NYHA class III ICD Codes: I50.9 - Heart failure, unspecified SNOMED: 259579305, 203522863 (3) Pacemaker ICD Codes: Z95.0 - Presence of cardiac pacemaker SNOMED: 474099591 (4) Prostate cancer ICD Codes: C61 - Malignant neoplasm of prostate SNOMED: 273296832 Assessment/Plan follow up cytology will d.w radiology if additional thoracentesis needed ct brain pt/ot eval rehab Subjective Allergies: Coded Allergies: CLARITHROMYCIN (Verified Allergy, Unknown, 01/04/18) Subjective c/o back pain and dbl vision. no headaches. breathing feels "better.". still feels "weak. 1.2 liters removed. post tap cxr still shows large effusion. Objective Last 24 Hour Vital Signs Date Time Temp Pulse Resp B/P (MAP) Pulse Ox O2 Delivery O2 Flow Rate FiO2 01/06/18 04:00 60 01/06/18 04:00 97.3 60 20 138/66 95 Room Air 97.3 01/06/18 00:00 60 01/06/18 00:00 97.8 60 20 124/64 99 Room Air 97.8 01/05/18 21:01 62 135/93 01/05/18 20:00 60 01/05/18 20:00 97.9 62 20 135/93 93 Room Air 97.9 01/05/18 16:00 97.5 60 18 117/59 97 Room Air 97.5 01/05/18 16:00 60 01/05/18 12:00 60 01/05/18 12:00 97.0 60 18 109/56 98 Room Air 97.0 01/05/18 09:17 60 125/64 01/05/18 08:00 97.3 60 18 125/64 99 Room Air 97.3 01/05/18 08:00 60 Intake and Output 01/05/18 01/06/18 19:00 07:00 Intake Total 360 ml Output Total 350 ml Balance 10 ml Intake Oral 360 ml Output Urine Total 350 ml # Voids 3 # Bowel Movements 1 Laboratory Tests 01/05/18 11:45: White Blood Count 6.8, Red Blood Count 4.47L, Hemoglobin 15.1, Hematocrit 45.5, Mean Corpuscular Volume 102H, Mean Corpuscular Hemoglobin 33.8H, Mean Corpuscular Hemoglobin Concent 33.1, Red Cell Distribution Width 12.5, Platelet Count 184, Mean Platelet Volume 9.0, Neutrophils (%) (Auto) 71.2, Lymphocytes (% ) (Auto) 16.3L, Monocytes (%) (Auto) 10.7H, Eosinophils (%) (Auto) 1.3, Basophils (%) (Auto) 0.5, Prothrombin Time 10.3, Prothromb Time International Ratio 1.0, Activated Partial Thromboplast Time 28, Sodium Level 135L, Potassium Level 3.7, Chloride Level 99, Carbon Dioxide Level 27, Anion Gap 9, Blood Urea Nitrogen 14, Creatinine 1.1, Estimat Glomerular Filtration Rate , Glucose Level 94, Calcium Level 9.4, Total Bilirubin 1.0, Aspartate Amino Transf (AST/SGOT) 30 , Alanine Aminotransferase (ALT/SGPT) 23, Alkaline Phosphatase 63, Total Protein 7.4, Albumin 3.1L, Globulin 4.3, Albumin/Globulin Ratio 0.7L Height (Feet): 5 Height (Inches): 5.00 Weight (Pounds): 145 ESTELA ESPARZA January 06, 2018 07:48
[2018-01-06 08:00] VITALS: BP 144/69
--- NOTE | 2018-01-06 08:09 | Pulmonology Progress Note ---
Assessment/Plan Assessment/Plan IMPRESSION: 1. large pleural effusion with mediastinal shift. with concern for malignancy s/ p tap 2. Hypertensive cardiomyopathy. 3. History of congestive heart failure, 4. Permanent pacemaker with appropriate function. 5. Aspiration. 6. compression atelectasis with possible post obstructive findings PLAN tap again send for cytology x2 keep negative will likely need follow up CT to assess for underlying mass follow up cxr for improvement reserve need for VATS pending follow up patient made aware of need for close follow up after discharge impression, plan, and exam edited and reviewed in detail care discussed with RN Subjective Allergies: Coded Allergies: CLARITHROMYCIN (Verified Allergy, Unknown, 01/04/18) Subjective s/p tap still with residual effusion Objective Last 24 Hour Vital Signs Date Time Temp Pulse Resp B/P (MAP) Pulse Ox O2 Delivery O2 Flow Rate FiO2 01/06/18 04:00 60 01/06/18 04:00 97.3 60 20 138/66 95 Room Air 97.3 01/06/18 00:00 60 01/06/18 00:00 97.8 60 20 124/64 99 Room Air 97.8 01/05/18 21:01 62 135/93 01/05/18 20:00 60 01/05/18 20:00 97.9 62 20 135/93 93 Room Air 97.9 01/05/18 16:00 97.5 60 18 117/59 97 Room Air 97.5 01/05/18 16:00 60 01/05/18 12:00 60 01/05/18 12:00 97.0 60 18 109/56 98 Room Air 97.0 01/05/18 09:17 60 125/64 Intake and Output 01/05/18 01/06/18 19:00 07:00 Intake Total 360 ml Output Total 350 ml Balance 10 ml Intake Oral 360 ml Output Urine Total 350 ml # Voids 3 # Bowel Movements 1 Objective WDWN NAD improved breath sounds bilaterally without rhonchi or wheeze [id number] without MRG NABS nontender no HSM no CC mild edema nonfocal Laboratory Tests 01/05/18 11:45: White Blood Count 6.8, Red Blood Count 4.47L, Hemoglobin 15.1, Hematocrit 45.5, Mean Corpuscular Volume 102H, Mean Corpuscular Hemoglobin 33.8H, Mean Corpuscular Hemoglobin Concent 33.1, Red Cell Distribution Width 12.5, Platelet Count 184, Mean Platelet Volume 9.0, Neutrophils (%) (Auto) 71.2, Lymphocytes (% ) (Auto) 16.3L, Monocytes (%) (Auto) 10.7H, Eosinophils (%) (Auto) 1.3, Basophils (%) (Auto) 0.5, Prothrombin Time 10.3, Prothromb Time International Ratio 1.0, Activated Partial Thromboplast Time 28, Sodium Level 135L, Potassium Level 3.7, Chloride Level 99, Carbon Dioxide Level 27, Anion Gap 9, Blood Urea Nitrogen 14, Creatinine 1.1, Estimat Glomerular Filtration Rate , Glucose Level 94, Calcium Level 9.4, Total Bilirubin 1.0, Aspartate Amino Transf (AST/SGOT) 30 , Alanine Aminotransferase (ALT/SGPT) 23, Alkaline Phosphatase 63, Total Protein 7.4, Albumin 3.1L, Globulin 4.3, Albumin/Globulin Ratio 0.7L Current Medications Medications (Trade) Dose Ordered Sig/Catrachito Route PRN Reason Start Time Stop Time Status Last Admin Dose Admin Acetaminophen (Tylenol) 500 mg Q4HR PRN ORAL Mild Pain/Temp > 100.5 01/04/18 07:45 02/03/18 07:44 01/05/18 23:13 Amiodarone HCl (Cordarone) 200 mg DAILY ORAL 01/04/18 09:00 02/03/18 08:59 01/05/18 09:17 Atorvastatin Calcium (Lipitor) 20 mg BEDTIME ORAL 01/04/18 21:00 02/03/18 20:59 01/05/18 21:01 Cyanocobalamin (Vitamin B-12 Tab) 100 mcg DAILY ORAL 01/04/18 09:30 02/03/18 09:29 01/05/18 09:17 Docusate Sodium (Colace) 250 mg DAILY ORAL 01/04/18 09:30 02/03/18 09:29 01/04/18 10:35 Furosemide (Lasix) 20 mg BID ORAL 01/04/18 09:00 02/03/18 08:59 01/05/18 17:10 Heparin Sodium (Porcine) (Heparin 5000 units/ml) 5,000 units EVERY 12 HOURS SUBQ 01/04/18 09:30 02/03/18 09:29 01/04/18 10:37 Magnesium Hydroxide (Mom) 30 ml DAILYPRN PRN ORAL Constipation 01/04/18 08:45 02/03/18 08:44 Metoprolol Tartrate (Lopressor) 100 mg EVERY 12 HOURS ORAL 01/04/18 09:00 02/03/18 08:59 01/05/18 21:01 Multivitamins (Multivitamins) 1 tab DAILY ORAL 01/04/18 09:00 02/03/18 08:59 01/05/18 09:17 Ondansetron HCl (Zofran ODT) 4 mg Q6H PRN ORAL Nausea & Vomiting 01/04/18 07:45 02/03/18 07:44 Pantoprazole (Protonix) 40 mg DAILY ORAL 01/04/18 09:00 02/03/18 08:59 01/05/18 09:17 Vitamin D (Vitamin D) 4,000 intlu DAILY ORAL 01/04/18 09:00 02/03/18 08:59 01/05/18 09:17 Zolpidem Tartrate (Ambien) 5 mg BEDTIME PRN ORAL Insomnia 01/04/18 07:45 01/11/18 07:44 Johnathan Oviedo MD January 06, 2018 08:09
[2018-01-06] MEDS: Docusate 250mg cap ORAL SCH ×2 (09:00→09:39)
--- NOTE | 2018-01-06 09:33 | Diagnostic Imaging Report ---
Indication: Reason For Exam: CVA Technique: spiral acquisitions obtained through the brain. Angled axial and coronal 5 x 5 mm slices were reconstructed. No IV contrast utilized. Radiation dose was minimized using automated exposure control Total dose length product 1371.97 mGycm. CTDIvol(s) 70.38 mGy Comparison: none FINDINGS: No acute hemorrhage or edema. No mass effect or midline shift. There is age-related enlargement of the ventricles and extra axial CSF spaces. There is periventricular deep white matter ischemic change. Normal nick-white differentiation. There is evidence of prior bilateral ocular surgery. Visualized sinuses are unremarkable. Intact calvarium. IMPRESSION: Chronic and age-related changes. Negative for acute intracranial bleed or mass effect The CT scanner at [facility] is accredited by the [employer] and the scans are performed using protocols designed to limit radiation exposure to as low as reasonably achievable to attain images of sufficient resolution adequate for diagnostic evaluation
[2018-01-06] MEDS: Amiodarone 200mg tab ORAL SCH (09:39)
[2018-01-06] MEDS: Vitamin B-12 100mcg tab ORAL SCH (09:40)
[2018-01-06] MEDS: Vitamin D 1000 IU Tab ORAL SCH (09:40)
[2018-01-06] MEDS: Heparin 5000 units/ml inj SUBQ SCH ×2 (09:42→21:00)
[2018-01-06 12:00] VITALS: BP 129/91
--- NOTE | 2018-01-06 14:43 | Cardiology Report ---
APPROVED REPORT EKG Measurement Heart [id number] MD 288P [id number] atrial paced ventricualr sensed
[2018-01-06 16:00] VITALS: BP 121/58
[2018-01-06 20:00] VITALS: BP 149/73
[2018-01-06] MEDS: Atorvastatin 20mg tab ORAL SCH (21:36)
[2018-01-07] VITALS: BP 125/69
--- NOTE | 2018-01-07 | Progress Note ---
DATE: 01/06/2018 CARDIOLOGY PROGRESS NOTE SUBJECTIVE: The patient has much less shortness of breath, but still feels quite weak. He still gets somewhat winded going to the bathroom. He had 1.2 liters of fluid removed from his lungs yesterday, but post tap chest x-ray reveals persisting large effusion. OBJECTIVE: VITAL SIGNS: Blood pressure 138/66, heart rate 60, and respirations 20. Afebrile. LUNGS: Diminished breath sounds. HEART: Regular rhythm and rate. Normal S1, S2. ABDOMEN: Soft. EXTREMITIES: Trace edema. RADIOGRAPHIC DATA: CT scan of the brain with no acute process. IMPRESSION: 1. Recurring pleural effusion. 2. Paroxysmal atrial fibrillation with permanent pacemaker. 3. Acute on chronic diastolic congestive heart failure. 4. Mediastinal shift noted, however, the patient states this has been noted years ago as well. PLAN: 1. Repeat thoracentesis, fluid for cytology. 2. Follow up CAT scan. 3. Titrate anti-failure and anti-ischemic regimen. Marc Martinez M.D. DR: DEQUAN JOB#: [id number] CC:
[2018-01-07] MEDS: Acetaminophen 500mg (ES) tab ORAL PRN ×3 (00:26→21:08)
[2018-01-07 04:00] VITALS: BP 137/60
[2018-01-07 08:00] VITALS: BP 136/60
--- NOTE | 2018-01-07 08:03 | General Progress Note ---
Assessment/Plan Problem List: (1) Pleural effusion ICD Codes: J90 - Pleural effusion, not elsewhere classified SNOMED: 40641412 (2) CHF (congestive heart failure), NYHA class III ICD Codes: I50.9 - Heart failure, unspecified SNOMED: 720021640, 129820565 (3) Pacemaker ICD Codes: Z95.0 - Presence of cardiac pacemaker SNOMED: 506306969 (4) Prostate cancer ICD Codes: C61 - Malignant neoplasm of prostate SNOMED: 766674912 Status: stable Assessment/Plan follow up cytology thoracentesis ct brain reviewed pt/ot eval rehab/dc planning today or tomorrow Subjective ROS Limited/Unobtainable: No Constitutional: Reports: malaise, weakness HEENT: Reports: no symptoms Cardiovascular: Reports: no symptoms Respiratory: Reports: cough Gastrointestinal/Abdominal: Reports: no symptoms Genitourinary: Reports: no symptoms Neurologic/Psychiatric: Reports: no symptoms Endocrine: Reports: no symptoms Hematologic/Lymphatic: Reports: no symptoms Allergies: Coded Allergies: CLARITHROMYCIN (Verified Allergy, Unknown, 01/04/18) All Systems: reviewed and negative except above Subjective overall better. head ct with chronic changes. for repeat thoracentesis today. Objective Last 24 Hour Vital Signs Date Time Temp Pulse Resp B/P (MAP) Pulse Ox O2 Delivery O2 Flow Rate FiO2 01/07/18 04:00 60 01/07/18 04:00 97.3 61 18 137/60 96 Room Air 97.3 01/07/18 01:25 97.2 01/07/18 00:26 97.2 01/07/18 00:00 60 01/07/18 00:00 97.6 61 16 125/69 94 Room Air 97.6 01/06/18 21:36 61 149/73 01/06/18 20:00 60 01/06/18 20:00 97.2 61 17 149/73 93 Room Air 97.2 01/06/18 16:00 60 01/06/18 16:00 97.5 65 18 121/58 100 Room Air 97.5 01/06/18 12:00 97.2 61 20 129/91 89 Room Air 97.2 01/06/18 12:00 60 01/06/18 09:40 61 144/69 Intake and Output 01/06/18 01/07/18 19:00 07:00 Intake Total 750 ml Output Total 554 ml Balance 196 ml Intake Oral 750 ml Output Urine Total 554 ml Stool Total 0 ml Height (Feet): 5 Height (Inches): 5.00 Weight (Pounds): 146 General Appearance: WD/WN, alert Neck: supple Cardiovascular: regular rhythm, no JVD Respiratory/Chest: chest wall non-tender, lungs clear, normal breath sounds Abdomen: normal bowel sounds, non tender, soft Edema: no edema noted Arm (L), no edema noted Arm (R), no edema noted Leg (L), no edema noted Leg (R), no edema noted Pedal (L), no edema noted Pedal (R), no edema noted Generalized ESTELA ESPARZA January 07, 2018 08:03
[2018-01-07] MEDS: Vitamin D 1000 IU Tab ORAL SCH (08:17)
[2018-01-07] MEDS: Docusate 250mg cap ORAL SCH (08:17)
[2018-01-07] MEDS: Vitamin B-12 100mcg tab ORAL SCH (08:17)
--- NOTE | 2018-01-07 08:18 | Pulmonology Progress Note ---
Assessment/Plan Assessment/Plan IMPRESSION: 1. large pleural effusion with mediastinal shift. with concern for malignancy s/ p tap 2. Hypertensive cardiomyopathy. 3. History of congestive heart failure, 4. Permanent pacemaker with appropriate function. 5. Aspiration. 6. compression atelectasis with possible post obstructive findings PLAN tap again ordered send for cytology x2 keep negative will likely need follow up CT to assess for underlying mass follow up cxr for improvement reserve need for VATS pending follow up patient made aware of need for close follow up after discharge impression, plan, and exam edited and reviewed in detail care discussed with RN Subjective Allergies: Coded Allergies: CLARITHROMYCIN (Verified Allergy, Unknown, 01/04/18) Subjective s/p tap still with residual effusion Objective Last 24 Hour Vital Signs Date Time Temp Pulse Resp B/P (MAP) Pulse Ox O2 Delivery O2 Flow Rate FiO2 01/07/18 04:00 60 01/07/18 04:00 97.3 61 18 137/60 96 Room Air 97.3 01/07/18 01:25 97.2 01/07/18 00:26 97.2 01/07/18 00:00 60 01/07/18 00:00 97.6 61 16 125/69 94 Room Air 97.6 01/06/18 21:36 61 149/73 01/06/18 20:00 60 01/06/18 20:00 97.2 61 17 149/73 93 Room Air 97.2 01/06/18 16:00 60 01/06/18 16:00 97.5 65 18 121/58 100 Room Air 97.5 01/06/18 12:00 97.2 61 20 129/91 89 Room Air 97.2 01/06/18 12:00 60 01/06/18 09:40 61 144/69 Intake and Output 01/06/18 01/07/18 19:00 07:00 Intake Total 750 ml Output Total 554 ml Balance 196 ml Intake Oral 750 ml Output Urine Total 554 ml Stool Total 0 ml Objective WDWN NAD stable breath sounds bilaterally without rhonchi or wheeze [id number] without MRG NABS nontender no HSM no CC mild edema nonfocal Current Medications Medications (Trade) Dose Ordered Sig/Catrachito Route PRN Reason Start Time Stop Time Status Last Admin Dose Admin Acetaminophen (Tylenol) 500 mg Q4HR PRN ORAL Mild Pain/Temp > 100.5 01/04/18 07:45 02/03/18 07:44 01/07/18 00:26 Amiodarone HCl (Cordarone) 200 mg DAILY ORAL 01/04/18 09:00 02/03/18 08:59 01/06/18 09:39 Atorvastatin Calcium (Lipitor) 20 mg BEDTIME ORAL 01/04/18 21:00 02/03/18 20:59 01/06/18 21:36 Cyanocobalamin (Vitamin B-12 Tab) 100 mcg DAILY ORAL 01/04/18 09:30 02/03/18 09:29 01/06/18 09:40 Docusate Sodium (Colace) 250 mg DAILY ORAL 01/04/18 09:30 02/03/18 09:29 01/04/18 10:35 Furosemide (Lasix) 20 mg BID ORAL 01/04/18 09:00 02/03/18 08:59 01/06/18 17:28 Heparin Sodium (Porcine) (Heparin 5000 units/ml) 5,000 units EVERY 12 HOURS SUBQ 01/04/18 09:30 02/03/18 09:29 01/06/18 09:42 Magnesium Hydroxide (Mom) 30 ml DAILYPRN PRN ORAL Constipation 01/04/18 08:45 02/03/18 08:44 Metoprolol Tartrate (Lopressor) 100 mg EVERY 12 HOURS ORAL 01/04/18 09:00 02/03/18 08:59 01/06/18 21:36 Multivitamins (Multivitamins) 1 tab DAILY ORAL 01/04/18 09:00 02/03/18 08:59 01/06/18 09:39 Ondansetron HCl (Zofran ODT) 4 mg Q6H PRN ORAL Nausea & Vomiting 01/04/18 07:45 02/03/18 07:44 Pantoprazole (Protonix) 40 mg DAILY ORAL 01/04/18 09:00 02/03/18 08:59 01/06/18 09:39 Vitamin D (Vitamin D) 4,000 intlu DAILY ORAL 01/04/18 09:00 02/03/18 08:59 01/06/18 09:40 Zolpidem Tartrate (Ambien) 5 mg BEDTIME PRN ORAL Insomnia 01/04/18 07:45 01/11/18 07:44 Johnathan Oviedo MD January 07, 2018 08:18
[2018-01-07] MEDS: Amiodarone 200mg tab ORAL SCH (08:22)
[2018-01-07] MEDS: Heparin 5000 units/ml inj SUBQ SCH ×2 (08:23→21:00)
[2018-01-07 11:53] VITALS: BP 134/67
--- NOTE | 2018-01-07 14:51 | Diagnostic Imaging Report ---
Indications: Pleural effusion Technique: Ultrasound used to localize optimal puncture site. Sterile prepping and draping left chest. Local anesthesia with 1% lidocaine. Under real-time ultrasound guidance, puncture pleural space using thoracentesis needle. Stylet removed. Catheter placed to vacuum bottle suction. Total 1800 milliliters of fluid aspirated. Patient tolerated procedure well, without immediate complication. Findings: Followup sonography demonstrates complete resolution of pleural fluid. Impression: Successful ultrasound-guided thoracentesis, yielding 1800 milliliters of fluid
--- NOTE | 2018-01-07 15:02 | Diagnostic Imaging Report ---
Indication: Status post thoracentesis Technique: One view of the chest Comparison: 01/05/2018. Reference also made to chest CT dated 01/04/2018 Findings: Interim resolution of previously demonstrated large left pleural effusion. There is a small apical pneumothorax on the left. No definite basilar pneumothorax. There is residual right costophrenic angle blunting, likely reflecting a small amount of residual pleural fluid. Opacity at the left infrahilar region suggests persistent atelectatic left lower lobe, particularly given similar appearance on previous CT. There is also a nodular appearing opacity in the periphery of the left lower hemithorax in the area previously obscured by pleural fluid The right lung and pleural space remain clear except for some linear scarring in the right infrahilar region. Left chest pacemaker remains. Impression: Markedly improved large left pleural effusion post thoracentesis, since prior exam of 01/05/2018. Small amount of residual fluid appears to be present Probable small left apical ex vacuo pneumothorax. Follow-up radiographs recommended to show stability or resolution Left infrahilar opacity may represent persistently atelectatic left lower lobe Other findings as noted Findings discussed by phone with Dr. Gomes at the time of interpretation
[2018-01-07 16:00] VITALS: BP 117/55
[2018-01-07 20:00] VITALS: BP 135/73
[2018-01-07] MEDS: Atorvastatin 20mg tab ORAL SCH (21:06)
[2018-01-08] VITALS: BP 126/47
[2018-01-08 04:00] VITALS: BP 123/60
--- NOTE | 2018-01-08 05:30 | Progress Note ---
DATE: 01/07/2018 CARDIOLOGY PROGRESS NOTE SUBJECTIVE: The patient is status post thoracentesis. Less shortness of breath noted. Monitored rhythm paced. OBJECTIVE: VITAL SIGNS: Blood pressure 137/60, heart rate 61, and respirations 18. LUNGS: Diminished breath sounds. Few rales. HEART: Regular rhythm and rate. Normal S1, S2. A 1/6 systolic apical murmur. ABDOMEN: Soft. EXTREMITIES: Trace edema. LABORATORY DATA: No new laboratories today. IMPRESSION: 1. Status post thoracentesis x2 with 3 liters fluid removed. 2. Mediastinal shift secondary to above. 3. Hypertensive heart disease. 4. Ischemic cardiomyopathy. 5. Permanent pacemaker. 6. Paroxysmal atrial fibrillation. PLAN: 1. Discharge planning. 2. Consider CT scan for imaging to exclude mass. 3. Consider PleurX catheter if recurring effusions. 4. Cardiovascular regimen reviewed for discharge. Marc Martinez M.D. DR: DEQUAN JOB#: [id number] CC:
[2018-01-08 07:58] VITALS: BP 123/55
[2018-01-08] MEDS: Vitamin D 1000 IU Tab ORAL SCH (08:14)
[2018-01-08] MEDS: Vitamin B-12 100mcg tab ORAL SCH (08:14)
[2018-01-08] MEDS: Amiodarone 200mg tab ORAL SCH (08:15)
[2018-01-08] MEDS: Docusate 250mg cap ORAL SCH (08:15)
[2018-01-08] MEDS: Heparin 5000 units/ml inj SUBQ SCH ×2 (08:16→22:01)
--- NOTE | 2018-01-08 08:27 | General Progress Note ---
Assessment/Plan Problem List: (1) Pleural effusion ICD Codes: J90 - Pleural effusion, not elsewhere classified SNOMED: 71779041 (2) CHF (congestive heart failure), NYHA class III ICD Codes: I50.9 - Heart failure, unspecified SNOMED: 844616258, 000754241 (3) Pacemaker ICD Codes: Z95.0 - Presence of cardiac pacemaker SNOMED: 544237257 (4) Prostate cancer ICD Codes: C61 - Malignant neoplasm of prostate SNOMED: 416211790 Status: stable, progressing Assessment/Plan follow up cytology repeat cxr this am ct brain reviewed pt/ot eval dc planning if cxr ok Subjective ROS Limited/Unobtainable: No Constitutional: Reports: malaise, weakness HEENT: Reports: no symptoms Cardiovascular: Reports: no symptoms Respiratory: Reports: no symptoms Gastrointestinal/Abdominal: Reports: no symptoms Genitourinary: Reports: no symptoms Neurologic/Psychiatric: Reports: no symptoms Endocrine: Reports: no symptoms Hematologic/Lymphatic: Reports: no symptoms Allergies: Coded Allergies: CLARITHROMYCIN (Verified Allergy, Unknown, 01/04/18) All Systems: reviewed and negative except above Subjective overall better. head ct with chronic changes. 2nd thoracentesis done yesterday- another 1.8 L removed. Objective Last 24 Hour Vital Signs Date Time Temp Pulse Resp B/P (MAP) Pulse Ox O2 Delivery O2 Flow Rate FiO2 01/08/18 08:15 53 123/55 01/08/18 07:58 97.3 53 18 123/55 98 Room Air 97.3 01/08/18 04:00 97.0 60 22 123/60 98 Room Air 97.0 01/08/18 04:00 60 01/08/18 00:00 60 01/08/18 00:00 97.0 69 19 126/47 100 Room Air 97.0 01/07/18 22:07 97.4 01/07/18 21:08 97.4 01/07/18 21:07 60 135/73 01/07/18 20:00 60 01/07/18 20:00 96.3 60 21 135/73 99 Room Air 96.3 01/07/18 16:00 97.4 60 18 117/55 99 Room Air 97.4 01/07/18 16:00 60 01/07/18 12:00 60 01/07/18 11:53 97.3 60 18 134/67 99 Room Air 97.3 Intake and Output 01/07/18 01/08/18 19:00 07:00 Intake Total 600 ml Output Total 1150 ml 300 ml Balance -550 ml -300 ml Intake Oral 600 ml Output Urine Total 1150 ml 300 ml Height (Feet): 5 Height (Inches): 5.00 Weight (Pounds): 145 Objective General Appearance: WD/WN, alert Neck: supple Cardiovascular: regular rhythm, no JVD Respiratory/Chest: chest wall non-tender, lungs clear, normal breath sounds Abdomen: normal bowel sounds, non tender, soft Edema: no edema noted Arm (L), no edema noted Arm (R), no edema noted Leg (L), no edema noted Leg (R), no edema noted Pedal (L), no edema noted Pedal (R), no edema noted Generalized ESTELA ESPARZA January 08, 2018 08:27
[2018-01-08 12:00] VITALS: BP 133/69
--- NOTE | 2018-01-08 14:29 | Diagnostic Imaging Report ---
Indication: Chest pain, follow-up of postthoracentesis pneumothorax Technique: 2 views of the chest Comparison: One view chest 01/07/2018 Findings: Apical component of pneumothorax on the left appears unchanged compared to the prior study, apex of the upper lobe projecting approximately 13 mm below the apex of the pleural space. On the lateral view, there appears to be an anterior component of the pneumothorax which is more extensive than the PA view would suggest. However, there does appear to be interim reexpansion of the left lower lobe, which is now visible on the lateral view and appears inflated. There is interim reaccumulation of a significant amount of pleural fluid, and an air-fluid level is seen anteriorly. The right lung and pleural space remain clear. Left lung nodular opacity previously demonstrated is still present but appears smaller. No other left pulmonary parenchymal opacities are demonstrated. Left chest pacemaker is again demonstrated Impression: Ex vacuo left pneumothorax persists but appears not to have increased in size since previous exam of yesterday. In fact, there does appear to be interim reexpansion of what was thought previously to be ectatic left lower lobe. There does appear to be significant reaccumulation of pleural fluid, however. Further follow-up imaging is recommended Other stable findings as described
[2018-01-08 16:00] VITALS: BP 122/59
--- NOTE | 2018-01-08 17:50 | Pulmonology Progress Note ---
Assessment/Plan Assessment/Plan IMPRESSION: 1. large pleural effusion with mediastinal shift. with concern for malignancy s/ p tap 2. Hypertensive cardiomyopathy. 3. History of congestive heart failure, 4. Permanent pacemaker with appropriate function. 5. Aspiration. 6. compression atelectasis with possible post obstructive findings PLAN monitor cxr for resolution of air consider evacuation of air send for cytology x2 keep negative follow up cxr for improvement reserve need for VATS pending follow up patient made aware of need for close follow up after discharge impression, plan, and exam edited and reviewed in detail care discussed with RN Subjective Allergies: Coded Allergies: CLARITHROMYCIN (Verified Allergy, Unknown, 01/04/18) Subjective s/p tap likely entraped lung with residual air in pleural space Objective Last 24 Hour Vital Signs Date Time Temp Pulse Resp B/P (MAP) Pulse Ox O2 Delivery O2 Flow Rate FiO2 01/08/18 16:00 96.6 60 18 122/59 97 Room Air 96.6 01/08/18 12:00 97.1 60 18 133/69 97 Room Air 97.1 01/08/18 12:00 60 01/08/18 08:15 53 123/55 01/08/18 08:00 60 01/08/18 07:58 97.3 53 18 123/55 98 Room Air 97.3 01/08/18 04:00 97.0 60 22 123/60 98 Room Air 97.0 01/08/18 04:00 60 01/08/18 00:00 60 01/08/18 00:00 97.0 69 19 126/47 100 Room Air 97.0 01/07/18 22:07 97.4 01/07/18 21:08 97.4 01/07/18 21:07 60 135/73 01/07/18 20:00 60 01/07/18 20:00 96.3 60 21 135/73 99 Room Air 96.3 Intake and Output 01/07/18 01/08/18 19:00 07:00 Intake Total 600 ml Output Total 1150 ml 300 ml Balance -550 ml -300 ml Intake Oral 600 ml Output Urine Total 1150 ml 300 ml Objective WDWN NAD stable breath sounds bilaterally without rhonchi or wheeze [id number] without MRG NABS nontender no HSM no CC mild edema nonfocal Current Medications Medications (Trade) Dose Ordered Sig/Catrachito Route PRN Reason Start Time Stop Time Status Last Admin Dose Admin Acetaminophen (Tylenol) 500 mg Q4HR PRN ORAL Mild Pain/Temp > 100.5 01/04/18 07:45 02/03/18 07:44 01/07/18 21:08 Amiodarone HCl (Cordarone) 200 mg DAILY ORAL 01/04/18 09:00 02/03/18 08:59 01/08/18 08:15 Atorvastatin Calcium (Lipitor) 20 mg BEDTIME ORAL 01/04/18 21:00 02/03/18 20:59 01/07/18 21:06 Cyanocobalamin (Vitamin B-12 Tab) 100 mcg DAILY ORAL 01/04/18 09:30 02/03/18 09:29 01/08/18 08:14 Docusate Sodium (Colace) 250 mg DAILY ORAL 01/04/18 09:30 02/03/18 09:29 01/08/18 08:15 Furosemide (Lasix) 20 mg BID ORAL 01/04/18 09:00 02/03/18 08:59 01/08/18 17:39 Heparin Sodium (Porcine) (Heparin 5000 units/ml) 5,000 units EVERY 12 HOURS SUBQ 01/04/18 09:30 02/03/18 09:29 01/08/18 08:16 Magnesium Hydroxide (Mom) 30 ml DAILYPRN PRN ORAL Constipation 01/04/18 08:45 02/03/18 08:44 Metoprolol Tartrate (Lopressor) 100 mg EVERY 12 HOURS ORAL 01/04/18 09:00 02/03/18 08:59 01/08/18 08:15 Multivitamins (Multivitamins) 1 tab DAILY ORAL 01/04/18 09:00 02/03/18 08:59 01/08/18 08:14 Ondansetron HCl (Zofran ODT) 4 mg Q6H PRN ORAL Nausea & Vomiting 01/04/18 07:45 02/03/18 07:44 Pantoprazole (Protonix) 40 mg DAILY ORAL 01/04/18 09:00 02/03/18 08:59 01/08/18 08:15 Vitamin D (Vitamin D) 4,000 intlu DAILY ORAL 01/04/18 09:00 02/03/18 08:59 01/08/18 08:14 Zolpidem Tartrate (Ambien) 5 mg BEDTIME PRN ORAL Insomnia 01/04/18 07:45 01/11/18 07:44 Johnathan Oviedo MD January 08, 2018 17:49
[2018-01-08 20:00] VITALS: BP 122/57
[2018-01-08] MEDS: Atorvastatin 20mg tab ORAL SCH (21:58)
[2018-01-09] VITALS (7 sets, daily range): BP systolic 105–146; BP diastolic 52–64
--- NOTE | 2018-01-09 | Progress Note ---
DATE: 01/08/2018 CARDIOLOGY PROGRESS NOTE SUBJECTIVE: Shortness of breath has improved. OBJECTIVE: VITAL SIGNS: Afebrile, blood pressure 123/56, heart rate 53, and respirations 18. Monitored rhythm paced demand. LUNGS: Diminished breath sounds. No wheezing. HEART: Regular rhythm and rate. Normal S1, S2. ABDOMEN: Soft. EXTREMITIES: No edema. DIAGNOSTIC DATA: Chest x-ray today reveals left pneumothorax with some reperfusion, but reaccumulation of pleural fluid already. IMPRESSION: 1. Recurring pleural effusion status post thoracentesis x2 within the last week. 2. Iatrogenic pneumothorax. 3. Acute on chronic diastolic congestive heart failure. 4. Permanent pacemaker. 5. Paroxysmal atrial fibrillation. PLAN: 1. May need thoracic surgery intervention such as VATS pleurodesis. PleurX catheter can be considered as well. 2. Follow-up cytology report. 3. Maintenance diuretic dosing. 4. Continue maintenance dose amiodarone for arrhythmia suppression as well as beta-blockade. Marc Martinez M.D. DR: DEQUAN JOB#: [id number] CC:
[2018-01-09] MEDS: Vitamin D 1000 IU Tab ORAL SCH (08:42)
[2018-01-09] MEDS: Docusate 250mg cap ORAL SCH (08:42)
[2018-01-09] MEDS: Amiodarone 200mg tab ORAL SCH (08:42)
[2018-01-09] MEDS: Vitamin B-12 100mcg tab ORAL SCH (08:42)
[2018-01-09] MEDS: Heparin 5000 units/ml inj SUBQ SCH ×2 (08:42→21:46)
--- NOTE | 2018-01-09 08:49 | Pulmonology Progress Note ---
Assessment/Plan Assessment/Plan IMPRESSION: 1. large pleural effusion with mediastinal shift. with concern for malignancy s/ p tap 2. Hypertensive cardiomyopathy. 3. History of congestive heart failure, 4. Permanent pacemaker with appropriate function. 5. Aspiration. 6. compression atelectasis with possible post obstructive findings PLAN monitor cxr for resolution of air- pending this am consider evacuation of air if worsens send for cytology x2 keep negative follow up cxr for improvement reserve need for VATS pending follow up patient made aware of need for close follow up after discharge impression, plan, and exam edited and reviewed in detail care discussed with RN Subjective Allergies: Coded Allergies: CLARITHROMYCIN (Verified Allergy, Unknown, 01/04/18) Subjective s/p tap no distress at present Objective Last 24 Hour Vital Signs Date Time Temp Pulse Resp B/P (MAP) Pulse Ox O2 Delivery O2 Flow Rate FiO2 01/09/18 08:00 97.3 60 18 105/57 96 Room Air 97.3 01/09/18 04:00 97.7 60 20 127/59 95 Room Air 97.7 01/09/18 04:00 60 01/09/18 00:00 97.0 59 20 108/57 96 Room Air 97.0 01/09/18 00:00 60 01/08/18 22:00 78 122/73 01/08/18 20:00 97.7 59 20 122/57 96 Room Air 97.7 01/08/18 20:00 60 01/08/18 16:00 96.6 60 18 122/59 97 Room Air 96.6 01/08/18 16:00 60 01/08/18 12:00 97.1 60 18 133/69 97 Room Air 97.1 01/08/18 12:00 60 Intake and Output 01/08/18 01/09/18 19:00 07:00 Intake Total 720 ml Output Total 600 ml Balance 120 ml Intake Oral 720 ml Output Urine Total 600 ml # Voids 1 # Bowel Movements 1 Objective WDWN NAD stable breath sounds bilaterally without rhonchi or wheeze [id number] without MRG NABS nontender no HSM no CC mild edema nonfocal Current Medications Medications (Trade) Dose Ordered Sig/Catrachito Route PRN Reason Start Time Stop Time Status Last Admin Dose Admin Acetaminophen (Tylenol) 500 mg Q4HR PRN ORAL Mild Pain/Temp > 100.5 01/04/18 07:45 02/03/18 07:44 01/07/18 21:08 Amiodarone HCl (Cordarone) 200 mg DAILY ORAL 01/04/18 09:00 02/03/18 08:59 01/09/18 08:42 Atorvastatin Calcium (Lipitor) 20 mg BEDTIME ORAL 01/04/18 21:00 02/03/18 20:59 01/08/18 21:58 Cyanocobalamin (Vitamin B-12 Tab) 100 mcg DAILY ORAL 01/04/18 09:30 02/03/18 09:29 01/09/18 08:42 Docusate Sodium (Colace) 250 mg DAILY ORAL 01/04/18 09:30 02/03/18 09:29 01/09/18 08:42 Furosemide (Lasix) 20 mg BID ORAL 01/04/18 09:00 02/03/18 08:59 01/09/18 08:42 Heparin Sodium (Porcine) (Heparin 5000 units/ml) 5,000 units EVERY 12 HOURS SUBQ 01/04/18 09:30 02/03/18 09:29 01/09/18 08:42 Magnesium Hydroxide (Mom) 30 ml DAILYPRN PRN ORAL Constipation 01/04/18 08:45 02/03/18 08:44 Metoprolol Tartrate (Lopressor) 50 mg EVERY 12 HOURS ORAL 01/08/18 21:00 02/07/18 20:59 01/08/18 22:00 Multivitamins (Multivitamins) 1 tab DAILY ORAL 01/04/18 09:00 02/03/18 08:59 01/09/18 08:42 Ondansetron HCl (Zofran ODT) 4 mg Q6H PRN ORAL Nausea & Vomiting 01/04/18 07:45 02/03/18 07:44 Pantoprazole (Protonix) 40 mg DAILY ORAL 01/04/18 09:00 02/03/18 08:59 01/09/18 08:42 Vitamin D (Vitamin D) 4,000 intlu DAILY ORAL 01/04/18 09:00 02/03/18 08:59 01/09/18 08:42 Zolpidem Tartrate (Ambien) 5 mg BEDTIME PRN ORAL Insomnia 01/04/18 07:45 01/11/18 07:44 01/08/18 22:27 Johnathan Oviedo MD January 09, 2018 08:49
--- NOTE | 2018-01-09 09:17 | General Progress Note ---
Assessment/Plan Problem List: (1) Pleural effusion ICD Codes: J90 - Pleural effusion, not elsewhere classified SNOMED: 13199952 (2) CHF (congestive heart failure), NYHA class III ICD Codes: I50.9 - Heart failure, unspecified SNOMED: 261377719, 703939174 (3) Pacemaker ICD Codes: Z95.0 - Presence of cardiac pacemaker SNOMED: 804454104 (4) Prostate cancer ICD Codes: C61 - Malignant neoplasm of prostate SNOMED: 583279130 Status: stable, progressing Assessment/Plan cytology negative repeat cxr this am ct brain reviewed pt/ot eval dc planning if cxr ok Subjective ROS Limited/Unobtainable: No Constitutional: Reports: no symptoms HEENT: Reports: no symptoms Cardiovascular: Reports: no symptoms Respiratory: Reports: no symptoms Gastrointestinal/Abdominal: Reports: no symptoms Genitourinary: Reports: no symptoms Neurologic/Psychiatric: Reports: no symptoms Endocrine: Reports: no symptoms Hematologic/Lymphatic: Reports: no symptoms Allergies: Coded Allergies: CLARITHROMYCIN (Verified Allergy, Unknown, 01/04/18) All Systems: reviewed and negative except above Subjective no events. dc held due to PTX and recurrent pleural fluid/effusion/trapped Objective Last 24 Hour Vital Signs Date Time Temp Pulse Resp B/P (MAP) Pulse Ox O2 Delivery O2 Flow Rate FiO2 01/09/18 08:58 60 105/57 01/09/18 08:00 97.3 60 18 105/57 96 Room Air 97.3 01/09/18 04:00 97.7 60 20 127/59 95 Room Air 97.7 01/09/18 04:00 60 01/09/18 00:00 97.0 59 20 108/57 96 Room Air 97.0 01/09/18 00:00 60 01/08/18 22:00 78 122/73 01/08/18 20:00 97.7 59 20 122/57 96 Room Air 97.7 01/08/18 20:00 60 01/08/18 16:00 96.6 60 18 122/59 97 Room Air 96.6 01/08/18 16:00 60 01/08/18 12:00 97.1 60 18 133/69 97 Room Air 97.1 01/08/18 12:00 60 Intake and Output 01/08/18 01/09/18 19:00 07:00 Intake Total 720 ml Output Total 600 ml Balance 120 ml Intake Oral 720 ml Output Urine Total 600 ml # Voids 1 # Bowel Movements 1 Height (Feet): 5 Height (Inches): 5.00 Weight (Pounds): 145 Objective General Appearance: WD/WN, alert Neck: supple Cardiovascular: regular rhythm, no JVD Respiratory/Chest: chest wall non-tender, lungs clear, normal breath sounds Abdomen: normal bowel sounds, non tender, soft Edema: no edema noted Arm (L), no edema noted Arm (R), no edema noted Leg (L), no edema noted Leg (R), no edema noted Pedal (L), no edema noted Pedal (R), no edema noted Generalized ESTELA ESPARZA January 09, 2018 09:17
--- NOTE | 2018-01-09 11:50 | Diagnostic Imaging Report ---
Indication: Chest pain, follow-up of pneumothorax Technique: One view of the chest Comparison: 01/08/2018 Findings: Left apical ex vacuo pneumothorax is unchanged. There is increasing reaccumulation of pleural fluid on the left. The right lung and pleural space remain clear. Left chest pacemaker remains Impression: Unchanged small left ex vacuo pneumothorax, 2 days status post thoracentesis Increasing left-sided pleural effusion
[2018-01-09] MEDS: Atorvastatin 20mg tab ORAL SCH (21:44)
--- NOTE | 2018-01-10 01:16 | Progress Note ---
DATE: 01/09/2018 CARDIOLOGY PROGRESS NOTE SUBJECTIVE: The patient continues to have residual pneumothorax and recurring pleural effusion noted with trapped lung. OBJECTIVE: VITAL SIGNS: Blood pressure 105/57, pulse 60, respiratory rate 18. Paced rhythm. LUNGS: Diminished breath sounds. HEART: Regular rhythm and rate. Normal S1, S2. A 1/6 systolic murmur at apex. ABDOMEN: Soft. EXTREMITIES: No edema. LABORATORY DATA: No new laboratories. IMPRESSION: 1. Recurring pleural effusion with trapped lung, in need of dialysis. 2. Status post recurring paracenteses. 3. Hypertensive cardiomyopathy. 4. Permanent pacemaker. 5. Chronic diastolic congestive heart failure. 6. Iatrogenic pneumothorax. PLAN: 1. Await cytology. 2. May need VATS . 3. Avoid tight blood pressure control. 4. Monitor closely and titrate cardiovascular medications accordingly. Marc Martinez M.D. DR: Sree JOB#: [id number] CC:
--- NOTE | 2018-01-12 11:42 | Discharge Summary ---
Discharge Summary Discharge Summary _ DATE OF ADMISSION: 01/04/2018 DATE OF DISCHARGE: 01/09/2018 REASON FOR ADMISSION: 82 years old male with past medical history of hypertension, congestive heart failure, pacemaker, prostate CA,, presented with shortness of breath and dyspnea on exertion for the last 2 months. Patient also complained of choking and coughing. He denied chest pain, no nausea, no vomiting, no diaphoresis. Potassium 3.3. Troponin negative ,pro BNP 2043. IV Lasix x 1 given in ED. EKG with pacing rhythm. No evidence of leukocytosis. Stable hemoglobin and hematocrit. Chest x-ray revealed opacification of the left hemithorax concerning for a large pleural effusion. Patient subsequently undergone CTA of the chest which revealed large left pleural effusion with mild mediastinal shift towards the right. Central compressive atelectasis portion of the left lower lobe. Underlying occult postobstructive process could not be excluded based on this exam. No definite evidence of PE. Patient was admitted with diagnosis of large left pleural effusion, congestive heart failure , hypertension, history of prostate CA. CONSULTANTS: fuel operator pulmonary [facility] COURSE: Patient admitted to telemetry floor. Cardiology and pulmonology consults were requested. Supplemental oxygen provided as needed to keep pulse oximetry above 92%. Pulmonary toilet provided as needed. Design Tech seen and evaluated the patient. Design Tech scheduled patient for thoracentesis. Patient subsequently undergone on 01/05 thoracentesis of large left pleural effusion which yielded 1.2 L of fluids. Chest x-ray post thoracentesis revealed interval decrease of large left pleural effusion ,revealing moderate left pleural effusion. No pneumothorax was present at that time. Recommended to repeat thoracentesis. Thoracentesis was repeated subsequently on 01/06 , which yielded 1.8 L of the pleural fluid. Post chest x-ray revealed complete resolution of pleural fluid. Chest x-ray next day revealed small left apical pneumothorax with markedly improved large left pleural effusion post-thoracentesis. Patient was followed up with the chest x-rays. Chest x-ray on January 08 revealed left pneumothorax, but appeared not to increased in size since previous exam. Chest x-jaison 01/09 revealed small apical left pneumothorax unchanged. Increasing left-sided pleural effusion. Cytology of pleural fluid was negative for evidence of malignant cells. Design Tech cleared patient for discharge. Design Tech made patient aware of need for close follow-up after discharge. Need for VATS was reserved at this time. Security Officer closely followed. Echocardiogram revealed preserved ejection fraction of 55-60% , right ventricular systolic pressure of 26, no LVH, no pericardial effusion. Patient noted to have evidence of paroxysmal atrial fibrillation. Cardiovascular regimen was titrated and optimized. Amiodarone and beta kellen started to [id number] arrhythmias. Potassium was replaced. Statin was continued. Patient initially was given intravenous Lasix in ED. Lasix was subsequently converted to oral route with close monitoring of cardiorenal parameters and volumes, continue upon discharge. Blood pressure was stable with the current medication regimen. PSA less than 0.13. DVT and GI prophylaxis provided. Bowel regimen instituted. Pain management provided. Patient was working with physical and occupational therapists. . Patient was stable for discharge home with close outpatient follow-up FINAL DIAGNOSES: Large left pleural effusion with mediastinal shift Status post thoracentesis 2 Acute on chronic diastolic congestive heart failure CHF NYHA class III Hypertensive heart disease Permanent pacemaker Iatrogenic pneumothorax Paroxysmal atrial fibrillation History of prostate CA, in remission DISCHARGE MEDICATIONS: See Medication Reconciliation list. DISCHARGE INSTRUCTIONS: Patient was discharged home. Patient to follow-up with a supervisor composing room next week for follow-up chest x-ray. I have been assigned to dictate discharge summary for this account. I was not involved in the patient's management. Laura Lui NP January 12, 2018 11:42
== END 2018-01-09 22:25 | disposition home or self-care (01) | DRG 292 ==
LOC: EDBD 03:19 → EMR 04:12 → 2E 05:15 → EDBEDREQ 05:45 → 2E 01-08 22:40
PROC: 0W9B3ZZ Drainage of Left Pleural Cavity, Percutaneous Approach (ICD-10-PCS; principal; 2018-01-05)
PROC: 0W9B3ZZ Drainage of Left Pleural Cavity, Percutaneous Approach (ICD-10-PCS; 2018-01-06)
DX: I11.0 Hypertensive heart disease with heart failure (principal); J90 Pleural effusion, not elsewhere classified; J93.83 Other pneumothorax; J98.11 Atelectasis; I50.33 Acute on chronic diastolic (congestive) heart failure; R93.8 Abnormal findings on diagnostic imaging of other specified body structures; Z95.0 Presence of cardiac pacemaker; Z85.46 Personal history of malignant neoplasm of prostate; Z88.8 Allergy status to other drugs, medicaments and biological substances; K59.09 Other constipation; Z90.79 Acquired absence of other genital organ(s); Z86.73 Personal history of transient ischemic attack (TIA), and cerebral infarction without residual deficits; I25.5 Ischemic cardiomyopathy; I48.0 Paroxysmal atrial fibrillation
CPT/HCPCS: 36415; 70450; 71045; 71046; 71275; 76942; 80053; 81003; 82550; 82553; 83880; 84153; 84484; 85025; 85610; 85730; 93005; 93306; 99285; J8499

== ENCOUNTER 2018-01-21 09:56 | Outpatient (CLI) | payer MEDICARE, BC ==
[~2018-01-21 09:56] MED LIST changes: +AMBIEN5 MG ORAL; +AMIODARONE HCL200 MG ORAL; +CRESTOR10 M1 ORAL; +FUROSEMIDE20 M1 ORAL; +METOPROLOL TAR100 M1 ORAL; +MULTIVITAMINS1 EAC2 ORAL; +NITROSTAT0.4 M2 SL; +PRILOSEC OTC20 MG ORAL; +TYLENOL EXTRA500 MG ORAL; +VITAMIN B-12100 MCG ORAL; +VITAMIN D1000 UNI1 ORAL
[2018-01-21 10:47] LABS: BASOPHILS % (AUTO) 0.8 % (0.0-2.0); EOSINOPHILS % (AUTO) 1.3 % (0.0-3.0); HEMATOCRIT 45.8 % (42.0-52.0); LYMPHOCYTES % (AUTO) 14.7 % (20.0-45.0); MEAN CORPUSCULAR VOLUME 102 FL (80-99); MONOCYTES % (AUTO) 9.6 % (1.0-10.0); NEUTROPHILS % (AUTO) 73.7 % (45.0-75.0); PLATELET COUNT 286 K/UL (150-450); RED BLOOD COUNT 4.49 M/UL (4.70-6.10); RED CELL DISTRIBUTION WIDTH 11.6 % (11.6-14.8); WHITE BLOOD COUNT 6.6 K/UL (4.8-10.8)
--- NOTE | 2018-01-21 12:04 | Diagnostic Imaging Report ---
Indications: Pleural effusion Technique: Ultrasound used to localize optimal puncture site. Sterile prepping and draping of the left lower chest performed. Local anesthesia with 1% lidocaine. Dermatotomy made. Puncture of the pleural space using thoracentesis needle. Stylet removed. Catheter placed to vacuum bottle suction. Fluid was aspirated. Patient tolerated procedure well, without immediate complication. Findings: Followup sonography demonstrates complete resolution of pleural fluid. Followup chest x-ray is pending. Impression: Successful ultrasound-guided left thoracentesis, yielding 1.2 liters of fluid
--- NOTE | 2018-01-21 12:05 | Diagnostic Imaging Report ---
Indication: Status post thoracentesis Comparison: None A single view chest radiograph was obtained. Findings: Left basilar pneumothorax moderate in size demonstrated following large volume thoracentesis. The upper portion of the lung remains expanded. We'll obtain follow-up in 2 hours. IMPRESSION: Left basilar pneumothorax following large volume thoracentesis.
--- NOTE | 2018-01-21 14:58 | Diagnostic Imaging Report ---
Indication: Pneumothorax follow-up Comparison: Earlier today A single view chest radiograph was obtained. Findings: There is a left basilar pneumothorax present. Some pleural fluid has now reaccumulated within the left lung base. The pneumothorax does not appear larger. The visceral pleura undersurface at the base of the left lung appears thickened indicative of a trapped or noncompliant lung. There is a pacemaker present. IMPRESSION: Left hydropneumothorax. Evidence of a trapped lung. Would expect reaccumulation of pleural fluid in the coming days. Patient remains asymptomatic.
--- NOTE | 2018-01-22 15:15 | Diagnostic Imaging Report ---
Indication: Pneumothorax follow-up Comparison: 01/21/2018 A single view chest radiograph was obtained. Findings: Left basilar pleural fluid has reaccumulated. There is a trace amount of air, mostly having been resorbed at this point. No change otherwise. IMPRESSION: Small hydropneumothorax on the left. Most of the air no longer visualized with reaccumulation of fluid. Findings consistent with a trapped lung as described in yesterday's report
== END 2018-01-21 11:56 | disposition home or self-care (01) ==
LOC: ULS 09:56
DX: J90 Pleural effusion, not elsewhere classified (principal)
CPT/HCPCS: 36415; 71045; 76942; 85025; 85610; 85730